=== PATIENT | female | born 1965 | race Caucasian/White ===

== ENCOUNTER → 2019-08-10 11:12 | Outpatient (CLI) | payer OTHER, SELFPAY ==
--- NOTE | ~2019-08-10 | MM_ITS ---
EXAMINATION: MM screening [facility] BI w kasia HISTORY: Screening mammogram TECHNIQUE: Craniocaudal and mediolateral oblique 3-D tomosynthesis images were obtained and synthetic 2-D images were generated. CAD analysis was submitted and interpreted. COMPARISON: 05/13/1918, 04/26/2017, 06/20/2015 BREAST PARENCHYMAL COMPOSITION: There are scattered areas of fibroglandular density. FINDINGS: Stable intramammary lymph nodes are noted in the upper outer quadrants of the breasts. Ther e is no evidence of suspicious mass, calcification, or architectural distortion to suggest malignancy in either breast. There has been no suspicious interval change. IMPRESSION: 1. No mammographic evidence of malignancy. 2. Recommend routine screening mammography in one year. BI-RADS Category 2: Benign finding(s). Reviewed, dictated and finalized at location A. 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
== END ==
PROVIDERS: PCP Physician Assistant; Visit Provider Physician Assistant
DX: Z12.31 Encounter for screening mammogram for malignant neoplasm of breast (principal)
CPT/HCPCS: 77063; 77067

== ENCOUNTER → 2021-01-03 15:42 | Outpatient (CLI) | payer OTHER, SELFPAY ==
--- NOTE | ~2021-01-03 | MM_ITS ---
EXAMINATION: MM screening [facility] BI w kasia HISTORY: Screening mammogram TECHNIQUE: Craniocaudal and mediolateral oblique 3-D tomosynthesis images were obtained and synthetic 2-D images were generated. CAD analysis was submitted and interpreted. COMPARISON: 08/10/2019, 05/13/1918, 04/26/2017 BREAST PARENCHYMAL COMPOSITION: There are scattered areas of fibroglandular density. FINDINGS: There is no evidence of suspicious mass, calcification, or architectural distortion to sugg est malignancy in either breast. There has been no suspicious interval change. IMPRESSION: 1. No mammographic evidence of malignancy. 2. Recommend routine screening mammography in one year. BI-RADS Category 1: Negative Reviewed, dictated and finalized at location A.
== END ==
PROVIDERS: PCP Physician Assistant; Visit Provider Obstetrics & Gynecology
DX: Z12.31 Encounter for screening mammogram for malignant neoplasm of breast (principal)
CPT/HCPCS: 77063; 77067

== ENCOUNTER → 2021-03-10 14:46 | Outpatient (CLI) | payer OTHER, SELFPAY ==
--- NOTE | ~2021-03-10 | XR_ITS ---
XR lumbar spine 2-3V DATE: 03/10/2021 15:05 INDICATION: Low back pain. No known trauma. TECHNIQUE: AP, lateral, coned lateral lumbosacral views COMPARISON: None FINDINGS: Diffuse osteopenia. There is degenerative spurring in the lower thoracic spine. There is moderate degenerative disc disea se at L1-2 and L2-3 and mild degenerative disc disease at the remaining lumbar and spine. No fracture or bone destruction or spondylolisthesis. The lumbar pedicles are intact. The sacroiliac joints appear normal. Right-sided surgical clips, consistent with cholecystectomy IMPRESSION: Mild to moderate degenerative disc disease Reviewed, dictated and finalized at location A.
== END ==
PROVIDERS: PCP Physician Assistant; Visit Provider Physician Assistant
DX: M51.36 Other intervertebral disc degeneration, lumbar region (principal)
CPT/HCPCS: 72100

== ENCOUNTER 2021-06-14 10:43 | Emergency (ER) | payer OTHER, SELFPAY ==
--- NOTE | ~2021-06-14 | CT_ITS ---
EXAMINATION: CT abdomen pelvis wo con DATE: 06/14/2021 13:45 INDICATION: Left flank pain and vomiting TECHNIQUE: Computed tomography (CT) of the abdomen and pelvis was performed without intravenous contr ast. The dose-length product was 1276.22 mGy-cm. . Automated exposure control and iterative reconstru ction technique were employed. COMPARISON: None. FINDINGS: Lung bases are unremarkable. Heart size normal. No significant vascular abnormality. No lym phadenopathy. There is a punctate 1 mm nonobstructing stone in the upper pole of the left kidney. There is a 3 mm l eft mid ureteral stone at the L4 level. No significant hydronephrosis. Status post cholecystectomy. The liver, spleen, pancreas, adrenal glands and right kidney are unremar kable. Nonobstructive bowel gas pattern. IMPRESSION: 1. Left mid ureteral stone measuring 3 mm at the L4 level. 2: Nonobstructing left nephrolithiasis. Reviewed, dictated and finalized at location A. 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
[2021-06-14 10:52] VITALS: BP 142/72; PULSE 84; RESP 18; TEMP 36.6; O2SAT 99
--- NOTE | 2021-06-14 11:57 | ED.GENADULT ---
HPI - General Adult General Chief complaint: Urogenital-Female <Angelique Oshea PA-C - Last Filed: 06/14/21 20:00> Stated complaint: pain , back left side <Angelique Oshea PA-C - Last Filed: 06/14/21 20:00> Time Seen by Provider: 06/14/21 11:56 <MARCUS Harry Last Filed: 06/14/21 20:00> Source: patient <Angelique Oshea PA-C - Last Filed: 06/14/21 20:00> Mode of arrival: ambulatory <MARCUS Harry Last Filed: 06/14/21 20:00> Limitations: no limitations <MARCUS Harry Last Filed: 06/14/21 20:00> History of Present Illness HPI narrative: Patient states that she has sudden onset of left lower back pain that came on suddenly this morning at about 10 AM. She has vomited twice due to pain. She states that she has had some soft stool, she is able to urinate. She denies any history of kidney stone in herself or anyone in her family, no history of bowel disease in herself or anyone in her family. She also states that she has not taken any of her routine meds because she is really bad at remembering . <Angelique Oshea PA-C - Last Filed: 06/14/21 20:00> Related Data Allergies/adverse reactions: Allergies Allergy/AdvReac Type Severity Reaction Status Date / Time Penicillins Allergy Unknown Verified 10/14/11 23:06 <Angelique Oshea PA-C - Last Filed: 06/14/21 20:00> Course Course Emergency Course: spoke with Urology on-call, will follow up in office. Continue to take Ibuprofen or Ketorolac for pain. <MARCUS Harry Last Filed: 06/14/21 20:00> Vital Signs Vital signs: Vital Signs Temperature 97.8 F 06/14/21 10:52 Pulse Rate 84 06/14/21 10:52 Respiratory Rate 18 06/14/21 10:52 Blood Pressure 142/72 H 06/14/21 10:52 Pulse Oximetry 99 06/14/21 10:52 Temperature 97.8 F 06/14/21 10:52 Pulse Rate 84 06/14/21 10:52 Respiratory Rate 18 06/14/21 10:52 Blood Pressure 142/72 H 06/14/21 10:52 Pulse Oximetry 99 06/14/21 10:52 <Angelique Oshea PA-C - Last Filed: 06/14/21 20:00> Medical Decision Making Vital Signs Vital Signs: Vital Signs Temperature 97.8 F 06/14/21 10:52 Pulse Rate 84 06/14/21 10:52 Respiratory Rate 18 06/14/21 10:52 Blood Pressure 142/72 H 06/14/21 10:52 Pulse Oximetry 99 06/14/21 10:52 Temperature 97.8 F 06/14/21 10:52 Pulse Rate 84 06/14/21 10:52 Respiratory Rate 18 06/14/21 10:52 Blood Pressure 142/72 H 06/14/21 10:52 Pulse Oximetry 99 06/14/21 10:52 <MARCUS Harry Last Filed: 06/14/21 20:00> Lab Data Result diagrams: : 06/14/21 13:07 06/14/21 13:07 <Angelique Oshea PA-C - Last Filed: 06/14/21 20:00> Labs: Lab Results 06/14/21 06/14/21 06/14/21 Range/Units 11:46 13:07 13:07 WBC 8.1 (4.5-10.0) K/mm3 RBC 4.17 L (4.2-5.4) M/mm3 Hgb 12.6 (12.0-15.0) g/dL Hct 38.9 (37.0-47.0) % MCV 93.3 (80-100) fl MCH 30.2 (26-34) pg MCHC 32.4 (32-36) g/dl RDW 13.4 (11.5-14.5) % Plt Count 292 (150-375) k/mm3 MPV 9.7 (7.4-10.4) fl Immature Gran % (Auto) 0.5 (0-0.5) % Neut % (Auto) 79.4 H (45.5-73.1) % Lymph % (Auto) 13.6 L (18.3-44.2) % [place] % (Auto) 5.2 (2.6-8.5) % Eos % (Auto) 0.9 (0-4.4) % Baso % (Auto) 0.4 (0.2-1.2) % Lymph # (Auto) 1.11 (0.9-3.2) K/mm3 [place] # (Auto) 0.4 (0.1-0.6) K/mm3 Eos # (Auto) 0.1 (0-0.3) K/mm3 Baso # (Auto) 0.0 (0.0-0.1) K/mm3 Abs Immat Gran (auto) 0.04 H (0.00-0.031) K/mm3 Absolute Neuts (auto) 6.5 (1.3-6.7) K/mm3 Absolute Nucleated RBC 0.0 (0.0-0.012) K/mm3 Nucleated RBC % 0.0 (0.0-0.2) % Sodium 135 L (137-145) mmol/L Potassium 4.7 (3.4-5.0) mmol/L Chloride 102 (98-107) mmol/L Carbon Dioxide 26 (22-30) mmol/L Anion Gap 7 L (8-16) mmol/L BUN 20 H (7-17) mg/dL Creatinine 0.70 (0.7-1.0) mg/dL Estim Creat Cl
[2021-06-14] MEDS: KETOROLAC (*BKC) 60 MG/2 ML VIAL IM (12:14)
[2021-06-14 12:38] LABS: Add Urine Microscopic? YES; Appearance Urine Cloudy (Clear); Bilirubin Urine Negative (Negative); Blood Urine 3+ (Negative); Budding Yeast Urine Present /hpf; Color Urine Yellow (Yellow); Glucose Urine UA Negative (Negative); Ketones Urine Negative (Negative); Leukocyte Esterase Ur Negative LEU/UL (Negative); Mucus Urine Heavy /lpf; Nitrate Urine Negative (Negative); Protein Urine 2+ mg/dL (Negative); RBC Urine >75 /hpf (0-2); Specific Grav Ur 1.029 (1.001-1.035); Squamous Epithelial Cell Urine Moderate /hpf (Few); WBC Urine 0-3 /hpf
[2021-06-14 13:19] LABS: Basophils Percent Auto 0.4 % (0.2-1.2); Eosinophils Absolute Auto 0.1 K/mm3 (0-0.3); Eosinophils Percent Auto 0.9 % (0-4.4); Hematocrit 38.9 % (37.0-47.0); Hemoglobin 12.6 g/dL (12.0-15.0); Immature Granulocyte Absolute 0.04 K/mm3 (0.00-0.031); Immature Granulocyte Percent A 0.5 % (0-0.5); Lymphocytes Absolute Auto 1.11 K/mm3 (0.9-3.2); Lymphocytes Percent Auto 13.6 % (18.3-44.2); Mean Corpuscular HGB Conc 32.4 g/dl (32-36); Mean Corpuscular Hemoglobin 30.2 pg (26-34); Mean Corpuscular Volume 93.3 fl (80-100); Mean Platelet Volume 9.7 fl (7.4-10.4); Monocytes Absolute Auto 0.4 K/mm3 (0.1-0.6); Monocytes Percent Auto 5.2 % (2.6-8.5); Neutrophils Absolute Auto 6.5 K/mm3 (1.3-6.7); Neutrophils Percent Auto 79.4 % (45.5-73.1); Platelet Count Result 292 k/mm3 (150-375); Red Blood Count 4.17 M/mm3 (4.2-5.4); Red Cell Distribution Width 13.4 % (11.5-14.5); White Blood Count 8.1 K/mm3 (4.5-10.0)
[2021-06-14 13:31] LABS: Anion Gap 7 mmol/L (8-16); Blood Urea Nitrogen 20 mg/dL (7-17); Calcium 9.2 mg/dL (8.4-10.2); Carbon Dioxide 26 mmol/L (22-30); Chloride 102 mmol/L (98-107); Estimated CRCL calculation 93 ml/min; Estimated Glomerular Filt Rate > 60; Glucose 136 mg/dL (65-110); Potassium 4.7 mmol/L (3.4-5.0); Sodium 135 mmol/L (137-145)
--- NOTE | 2021-06-14 14:40 | PC.NURSE ---
Pt called out for more pain medication. Provider made aware.
[2021-06-14] MEDS: ACETAMINOPHEN 500 MG TABLET 1000 MG PO (15:02)
== END 2021-06-14 15:11 | disposition home or self-care (01) ==
PROVIDERS: Physician Assistant; Emergency Provider General Practice; PCP Physician Assistant
DX: N20.2 Calculus of kidney with calculus of ureter (principal)
CPT/HCPCS: 36415; 74176; 80048; 81001; 85025; 96372; 99284; A9270; J1885

== ENCOUNTER → 2021-07-06 14:46 | Outpatient (CLI) | payer OTHER, SELFPAY ==
--- NOTE | ~2021-07-06 | XR_ITS ---
EXAMINATION: XR abdomen/kub 1V EXAM DATE: 07/06/2021 15:09 INDICATION: History of kidney stones . TECHNIQUE: Frontal projection of the upper abdomen, frontal projection lower abdomen/pelvis for inter pretation. Correlation is made to CT abdomen pelvis 06/14/2021 FINDINGS: Left mid ureteral 3 mm stone seen on CT last month is not definitely identified. There are cholecystectomy clips. Nonobstructive bowel gas pattern. Mild bony degenerative changes. There is no organomegaly. IMPRESSION: No suspicious calcifications identified. Reviewed, dictated and finalized at location A. 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
== END ==
PROVIDERS: Visit Provider Urology
DX: Z87.442 Personal history of urinary calculi (principal)
CPT/HCPCS: 74018

== ENCOUNTER → 2021-10-20 09:09 | Outpatient (CLI) | payer OTHER, SELFPAY ==
--- NOTE | ~2021-10-20 | XR_ITS ---
EXAMINATION: XR chest 2V DATE: 10/20/2021 10:27 INDICATION: Cough TECHNIQUE: PA and lateral views of the chest are obtained. COMPARISON: None available FINDINGS: There are minimal airspace opacities of the left lower lobe. There is no pleural effusion o r pneumothorax. The cardiomediastinal silhouette is normal. There is mild thoracic spondylosis. Surgi leeroy clips in the right upper quadrant are likely from prior cholecystectomy. IMPRESSION: 1. Left lower lobe airspace opacities, likely pneumonia. Recommend followup radiographs in 10-14 days after appropriate therapy to evaluate for improvement/resolution. Reviewed, dictated and finalized at location B. IMPRESSION: 1. Left lower lobe airspace opacities, likely pneumonia. Recommend followup rad iographs in 10-14 days after appropriate therapy to evaluate for improvement/re solution.
== END ==
PROVIDERS: PCP Physician Assistant; Visit Provider Physician Assistant
DX: R05.1 Acute cough (principal); R91.8 Other nonspecific abnormal finding of lung field
CPT/HCPCS: 71046

== ENCOUNTER → 2021-10-31 16:17 | Outpatient (CLI) | payer OTHER, SELFPAY ==
--- NOTE | ~2021-10-31 | XR_ITS ---
EXAMINATION: XR chest 2V Exam Date/Time: 10/31/2021 16:41 CDT CLINICAL HISTORY: Pneumonia Comparison: None available. RESULT: Lines, tubes, and devices: None. Lungs and pleura: Clear. Near complete resolution of the previously described left pulmonary opacities. Cardiomediastinal silhouette: Stable cardiomediastinal silhouette. Other: No acute osseous or upper abdominal finding. IMPRESSION: No acute cardiopulmonary process Reviewed, dictated and finalized at location K.
== END ==
PROVIDERS: PCP Physician Assistant; Visit Provider Physician Assistant
DX: J18.9 Pneumonia, unspecified organism (principal)
CPT/HCPCS: 71046

== ENCOUNTER 2022-04-20 12:51 | Emergency (ER) | payer OTHER, SELFPAY ==
[2022-04-20 13:02] VITALS: BP 120/61; PULSE 102; RESP 18; TEMP 36.8; O2SAT 100
--- NOTE | 2022-04-20 14:01 | ED.URI ---
HPI - URI/Sore Throat General Chief Complaint: Upper Respiratory Infection Stated Complaint: cough Time Seen by Provider: 04/20/22 14:00 Source: patient, RN notes reviewed and old records reviewed Mode of arrival: ambulatory Limitations: no limitations History of Present Illness HPI Narrative: 56-year-old female presents to the [facility] with complaints of cough, feeling feverish since Saturday. He reports cough and generalized not feeling well. Related Data Home Medications Medication Instructions Recorded Confirmed levothyroxine 75 mcg tablet 75 mcg PO DAILY 02/20/22 04/20/22 rosuvastatin 10 mg tablet 10 mg PO DAILY 02/20/22 04/20/22 sertraline 50 mg tablet 50 mg PO DAILY 02/20/22 04/20/22 Allergies Allergy/AdvReac Type Severity Reaction Status Date / Time Penicillins Allergy Unknown Unknown Verified 04/20/22 13:42 Review of Systems Review of Systems: All systems reviewed & are unremarkable except as noted in HPI and below Constitutional: Constitutional: Reports as per HPI, Denies chills, Reports fatigue and Reports fever(s) Eyes: Eyes: Reports no additional eye complaints ENT: Reports system reviewed and no additional complaints, except as documented Cardiovascular: Cardiovascular: Reports no additional cardiovascular complaints Respiratory: Respiratory: Reports as per HPI and Reports cough Gastrointestinal: Gastrointestinal: Reports no additional gastrointestinal complaints Musculoskeletal: Musculoskeletal: Reports no additional musculoskeletal complaints Integumentary/Breasts: Skin/Breast: Reports system reviewed and no additional complaints, except as docu Neurologic: Reports system reviewed and no additional complaints, except as documented Psychiatric: Psychiatric: Reports no additional psychiatric complaints Allergic/Immunologic: Allergic/Immunologic: Reports no additional allergic/immunologic complaints ON LICENSE OF [facility] Past Medical History Medical History Anxiety Depression Dizziness High cholesterol Hypothyroidism Screening mammogram, encounter for Surgical History Surgical History History of (09/19/85) History of cholecystectomy (~1993) History of total abdominal hysterectomy and bilateral salpingo-oophorectomy (~1994) endometriosis History of tubal ligation (~07/25/92) Family History Family History Mother Diabetes mellitus Breast cancer Sibling Diabetes mellitus brother Other Breast cancer maternal aunt Father Malignant tumor of stomach Social History Social History Smoking status: Former smoker Tobacco type: e-cigarettes/vaping Alcohol intake: never Substance use: never Substance use type: does not use Additional living arrangements comments: single 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 There is no relevant family history pertinent to the patient complaint. Exam Const: General: healthy appearing, no acute distress, alert and well nourished Nutritional Appearance: well nourished Orientation/consciousness: patient oriented x3 Limitations: no limitations HENMT: Head: normal to inspection Ears: external ears normal, TM's normal bilaterally and EAC's normal Face/Nose/Sinus: Normal external nose present Mouth: Yes Normal oral and palatal mucosa present, Yes lip normal and Yes moist mucous membranes Throat: posterior oropharynx normal and uvula midline Eyes: General: appearance normal, both eyes and all related structures Conjunctivae: conjunct
== END 2022-04-20 14:31 | disposition home or self-care (01) ==
PROVIDERS: Emergency Provider Nurse Practitioner
DX: J20.9 Acute bronchitis, unspecified (principal); E03.9 Hypothyroidism, unspecified; F41.9 Anxiety disorder, unspecified; F32.9 Major depressive disorder, single episode, unspecified; Z87.891 Personal history of nicotine dependence
CPT/HCPCS: 87804; 99213; G0463

== ENCOUNTER → 2022-05-03 13:03 | Outpatient (CLI) | payer OTHER, SELFPAY ==
--- NOTE | ~2022-05-03 | MM_ITS ---
EXAMINATION: MM screening [facility] BI w kasia HISTORY: Screening mammogram TECHNIQUE: Craniocaudal and mediolateral oblique 3-D tomosynthesis images were obtained and synthetic 2-D images were generated. CAD analysis was submitted and interpreted. COMPARISON: 01/03/2021, 08/10/2019, 05/22/2018 bilateral screening mammogram examinations BREAST PARENCHYMAL COMPOSITION: There are scattered areas of fibroglandular density. FINDINGS: Bilateral posterior upper outer quadrant intramammary lymph nodes. There is no evidence of suspicious mass, calcification, or architectural distortion to suggest malignancy in either breast. T here has been no suspicious interval change. IMPRESSION: 1. No mammographic evidence of malignancy. 2. Recommend routine screening mammography in one year. BI-RADS Category 2: Benign finding(s). Reviewed, dictated and finalized at location A. CONSULTANT
== END ==
PROVIDERS: PCP Physician Assistant; Visit Provider Obstetrics & Gynecology
DX: Z12.31 Encounter for screening mammogram for malignant neoplasm of breast (principal)
CPT/HCPCS: 77063; 77067

== ENCOUNTER 2022-08-10 00:30 | Day surgery (SDC) | payer OTHER, SELFPAY ==
[2022-07-26 12:28] VITALS: BMI 40.4
[2022-08-10 08:12] VITALS: BP 119/58; PULSE 65; RESP 20; TEMP 36.2; O2SAT 98; BMI 40.8
[2022-08-10] MEDS: LACTATED RINGERS 1,000 ML 150 ML IV CONT (08:22)
--- NOTE | 2022-08-10 08:40 | WPDANESEPPF ---
Anes - Initial Pre Proc Eval Procedure: Operation Date: 08/10/22 09:00 Proposed Procedures p Screening Colonoscopy - Eddi Moreno MD Date/Time: 08/10/22 08:40 Surgeon: Eddi Moreno MD Pre Op Diagnosis: neoplasm screening Patient Data Age: 57 Gender: F Height: 1.63 m Weight: 108 kg Last Vital Signs Temp 36.2 C L 08/10/22 08:12 Pulse 65 08/10/22 08:12 Resp 20 08/10/22 08:12 BP 119/58 L 08/10/22 08:12 Pulse Ox 98 08/10/22 08:12 O2 Del Method Room Air 08/10/22 08:12 Allergies Allergy/AdvReac Type Severity Reaction Status Date / Time Penicillins Allergy Unknown Unknown Verified 04/20/22 13:42 Home Medications Medication Instructions Recorded Confirmed Type levothyroxine 75 mcg tablet 75 mcg PO DAILY 02/20/22 07/26/22 History rosuvastatin 10 mg tablet 10 mg PO DAILY 02/20/22 07/26/22 History sertraline 50 mg tablet 50 mg PO DAILY 02/20/22 07/26/22 History Patient hx anesthesia problems: none Family hx anesthesia problems: none Results Review: All pre-operative results and documents have been reviewed as part of the pre-operative evaluation. [facility] Past Medical History Medical History Anxiety Depression Dizziness High cholesterol Hypothyroidism Screening mammogram, encounter for Surgical History Surgical History History of (09/19/85) History of cholecystectomy (~1993) History of total abdominal hysterectomy and bilateral salpingo-oophorectomy (~1994) endometriosis History of tubal ligation (~07/25/92) Family History Family History Mother Diabetes mellitus Breast cancer Sibling Diabetes mellitus brother Other Breast cancer maternal aunt Father Malignant tumor of stomach Social History Social History Smoking packs per day: 0.5 Smoking cigarettes per day: 10.0 Years smoked: 30 Smoking pack-years: 15.00 Smoking status: Former smoker Tobacco type: cigarettes and e-cigarettes/vaping Additional smoking assessment comments: QUIT SMOKING 2018 AND STARTED VAPING Alcohol intake: never Substance use: never Substance use type: does not use Living arrangements: with family Additional living arrangements comments: single 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 Gender identity (if verbalized by the patient): Female Sexual Orientation (if Verbalized by the Patient): Straight or Heterosexual Spiritual care concerns: No Anes - Eval Final PreProcedure Day of Procedure 08/10/22 08:40 Patient weight: morbidly obese Heart: regular rate and rhythm Lungs: clear to auscultation Airway: Mallampati scale class II Neurological: alert and oriented Last oral intake: >/= 8 hours ASA classification: III Emergent: no Anesthetic plan: proceed Anesthesia type and monitoring: general GIVS and standard monitoring Results Review: All pre-operative results and documents have been reviewed as part of the pre-operative evaluation. Informed Consent: The patient's anesthetic plan and its attendant risks and benefits were discussed with the patient/family/POA. Questions were solicited and answers provided to the satisfaction of the patient/family/POA.
--- NOTE | 2022-08-10 08:57 | PM.HPGS ---
History of Present Illness History of Present Illness Consent: Risks, benefits, and alternatives have been discussed and questions answered. Patient agrees to proceed with procedure. Chief complaint: neoplasm screening Narrative: Samina Nicolas is a 57 year old female Presents for screening colonoscopy. Patient's current weight appetite and bowel movements are normal. Patient denies abdominal pain. Patient has had no bleeding. Family history noncontributory. Previous colonoscopy 10 years ago was unremarkable. Review of Systems Review of Systems: Review of systems noncontributory. [facility] Past Medical History Medical History Anxiety Depression Dizziness High cholesterol Hypothyroidism Screening mammogram, encounter for Surgical History Surgical History History of (09/19/85) History of cholecystectomy (~1993) History of total abdominal hysterectomy and bilateral salpingo-oophorectomy (~1994) endometriosis History of tubal ligation (~07/25/92) Family History Family History Mother Diabetes mellitus Breast cancer Sibling Diabetes mellitus brother Other Breast cancer maternal aunt Father Malignant tumor of stomach Social History Social History Smoking packs per day: 0.5 Smoking cigarettes per day: 10.0 Years smoked: 30 Smoking pack-years: 15.00 Smoking status: Former smoker Tobacco type: cigarettes and e-cigarettes/vaping Additional smoking assessment comments: QUIT SMOKING 2018 AND STARTED VAPING Alcohol intake: never Substance use: never Substance use type: does not use Living arrangements: with family Additional living arrangements comments: single 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 Gender identity (if verbalized by the patient): Female Sexual Orientation (if Verbalized by the Patient): Straight or Heterosexual Spiritual care concerns: No Meds Home Medications and Allergies Home Medications Medication Instructions Recorded Confirmed Type levothyroxine 75 mcg tablet 75 mcg PO DAILY 02/20/22 07/26/22 History rosuvastatin 10 mg tablet 10 mg PO DAILY 02/20/22 07/26/22 History sertraline 50 mg tablet 50 mg PO DAILY 02/20/22 07/26/22 History Allergies Allergy/AdvReac Type Severity Reaction Status Date / Time Penicillins Allergy Unknown Unknown Verified 04/20/22 13:42 Vital Signs Vital Signs - 24 hr 08/10/22 08:12 Temperature 97.2 F L Pulse Rate 65 Respiratory Rate 20 Blood Pressure 119/58 L Pulse Oximetry 98 Oxygen Delivery Room Air Exam Narrative: Physical exam reveals patient to be alert. Vital signs stable. HEENT exam is unremarkable. Patient is anicteric. Lungs are clear to auscultation and percussion. Heart is without murmur or extra sounds. Abdomen bowel sounds are present soft nontender with no organomegaly. Digital external rectal exam is normal. Assessment and Plan Assessment and plan (1) Encounter for screening colonoscopy: Code(s): Z12.11 - Encounter for screening for malignant neoplasm of colon Status: Acute Assessment and Plan: Patient presents today for screening colonoscopy. She appears to be at average risk for colon polyps.
[2022-08-10 09:35] VITALS: BP 108/69; PULSE 66; RESP 16; O2SAT 98
[2022-08-10 09:45] VITALS: BP 106/64; PULSE 64; RESP 18; O2SAT 98
[2022-08-10 09:55] VITALS: BP 117/72; PULSE 62; RESP 18; O2SAT 99
== END 2022-08-10 09:59 | disposition home or self-care (01) ==
PROVIDERS: PCP Physician Assistant; Visit Provider Internal Medicine Gastroenterology
PROC: 0DJD8ZZ Inspection of Lower Intestinal Tract, Via Natural or Artificial Opening Endoscopic (ICD-10-PCS; CPT 45378; principal; 2022-08-10 09:00)
DX: Z12.11 Encounter for screening for malignant neoplasm of colon (principal); K63.5 Polyp of colon; K62.1 Rectal polyp; E03.9 Hypothyroidism, unspecified; E78.00 Pure hypercholesterolemia, unspecified; F41.9 Anxiety disorder, unspecified; F32.A Depression, unspecified; F17.290 Nicotine dependence, other tobacco product, uncomplicated; E66.01 Morbid (severe) obesity due to excess calories; Z68.41 Body mass index [BMI] 40.0-44.9, adult
CPT/HCPCS: 45385; 88305; J2704; J7120

== ENCOUNTER → 2023-03-21 08:32 | Outpatient (CLI) | payer OTHER, SELFPAY ==
--- NOTE | ~2023-03-21 | XR_ITS ---
XR abdomen/kub 1V 03/21/2023 09:11 INDICATION: Low back pain TECHNIQUE: KUB COMPARISON: None FINDINGS: Bowel gas pattern is normal. There is no evidence of free air, mass, organomegaly, ascites or obstruction. No abnormal calculi are seen. The bones appear intact. There is a right pelvic phl ebolith. Moderate colonic fecal loading. There are cholecystectomy clips. Mild lumbar spondylosis. IMPRESSION: 1: No acute abdominal abnormality identified. Reviewed, dictated and finalized at location L.
== END ==
PROVIDERS: PCP Physician Assistant; Visit Provider Physician Assistant
DX: M54.50 Low back pain, unspecified (principal)
CPT/HCPCS: 74018

== ENCOUNTER 2023-06-25 08:07 | Emergency (ER) | payer OTHER, SELFPAY ==
--- NOTE | 2023-06-25 08:10 | ED.URI ---
HPI - URI/Sore Throat General Chief Complaint: Upper Respiratory Infection Stated Complaint: COVID+ Time Seen by Provider: 06/25/23 08:09 Source: patient Mode of arrival: ambulatory Limitations: no limitations History of Present Illness HPI Narrative: Patient is a 57-year-old female that presents with cough, congestion and intermittent fevers since the . Patient tested positive for COVID on the and still tested positive yesterday. Patient states her cough is only thing that seems to linger. Denies any ear pain, sore throat, nausea, vomiting, diarrhea. Related Data Home Medications Medication Instructions Recorded Confirmed levothyroxine 75 mcg tablet 75 mcg PO DAILY 02/20/22 07/26/22 rosuvastatin 10 mg tablet 10 mg PO DAILY 02/20/22 07/26/22 sertraline 50 mg tablet 50 mg PO DAILY 02/20/22 07/26/22 Allergies Allergy/AdvReac Type Severity Reaction Status Date / Time Penicillins Allergy Unknown Unknown Verified 04/20/22 13:42 Review of Systems Review of Systems: All systems reviewed & are unremarkable except as noted in HPI and below Constitutional: Constitutional: Denies body ache(s), Denies chills, Denies fatigue, Denies fever(s), Denies headache(s), Denies malaise and Denies weakness Eyes: Eyes: Denies blurry vision, Denies itchy eyes and Denies loss of vision ENT: Denies otalgia, Denies headache(s), Reports nasal congestion, Denies sinus pain and Denies sore throat Cardiovascular: Cardiovascular: Denies chest pain, Denies irregular heart rhythm and Denies dyspnea Respiratory: Respiratory: Reports cough and Denies dyspnea Gastrointestinal: Gastrointestinal: Denies abdominal pain, Denies diarrhea, Denies nausea and Denies vomiting Musculoskeletal: Musculoskeletal: Denies back pain, Denies myalgias and Denies arthralgias Integumentary/Breasts: Skin/Breast: Denies pruritus and Denies rash Neurologic: Denies headache(s), Denies loss of vision and Denies weakness Psychiatric: Psychiatric: Reports no additional psychiatric complaints Endocrine: Endocrine: Denies fatigue Allergic/Immunologic: Allergic/Immunologic: Denies itchy eyes PMFSH Past Medical History Medical History Anxiety Depression Dizziness High cholesterol Hypothyroidism Screening mammogram, encounter for Surgical History Surgical History History of (09/19/85) History of cholecystectomy (~1993) History of total abdominal hysterectomy and bilateral salpingo-oophorectomy (~1994) endometriosis History of tubal ligation (~07/25/92) Family History Family History Mother Diabetes mellitus Breast cancer Sibling Diabetes mellitus brother Other Breast cancer maternal aunt Father Malignant tumor of stomach Social History Social History Smoking packs per day: 0.5 Smoking cigarettes per day: 10.0 Years smoked: 30 Smoking pack-years: 15.00 Smoking status: Former smoker Tobacco type: cigarettes and e-cigarettes/vaping Additional smoking assessment comments: QUIT SMOKING 2018 AND STARTED VAPING Alcohol intake: never Substance use: never Substance use type: does not use Living arrangements: with family Additional living arrangements comments: single 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 There is no relevant family history pertinent to the presenting complaint. Exam Const: General: cooperative, healthy appearing, comfortable, no acute distress
[2023-06-25 08:17] VITALS: BP 116/61; PULSE 97; RESP 16; TEMP 37.2; O2SAT 99
== END 2023-06-25 08:32 | disposition home or self-care (01) ==
PROVIDERS: Emergency Provider Nurse Practitioner Family; PCP Physician Assistant
DX: J06.9 Acute upper respiratory infection, unspecified (principal); E03.9 Hypothyroidism, unspecified; Z87.891 Personal history of nicotine dependence
CPT/HCPCS: 99213; G0463

== ENCOUNTER → 2023-08-02 15:50 | Outpatient (CLI) | payer OTHER, SELFPAY ==
--- NOTE | ~2023-08-02 | MM_ITS ---
EXAMINATION: MM screening nayeli BI w kasia HISTORY: Screening mammogram TECHNIQUE: Craniocaudal and mediolateral oblique 3-D tomosynthesis images were obtained and synthetic 2-D images were generated. CAD analysis was submitted and interpreted. COMPARISON: 05/03/2022, 01/03/2021, 08/10/2019 bilateral screening mammogram examinations BREAST PARENCHYMAL COMPOSITION: There are scattered areas of fibroglandular density. FINDINGS: Stable posterior upper outer quadrant benign appearing right lymph nodes. There is no evide nce of suspicious mass, calcification, or architectural distortion to suggest malignancy in either br east. There has been no suspicious interval change. IMPRESSION: 1. No mammographic evidence of malignancy. 2. Recommend routine screening mammography in one year. BI-RADS Category 2: Benign finding(s). Reviewed, dictated and finalized at location A. [facility]
== END ==
PROVIDERS: PCP Physician Assistant; Visit Provider Obstetrics & Gynecology
DX: Z12.31 Encounter for screening mammogram for malignant neoplasm of breast (principal)
CPT/HCPCS: 77063; 77067

== ENCOUNTER 2024-11-24 12:31 | Outpatient (CLI) | payer OTHER, SELFPAY ==
--- OUTSIDE RECORDS SUMMARY | 2024-11-24 12:40 | XMS_ITS | Clinical Summary ---
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 Gender Identity Not on file Sexual Orientation Not on file Plan of Treatment Health Maintenance Due Date Last Done Comments Hepatitis C Virus (HCV) Screening 1966 TdaP Immunization 1966 Hepatitis B Immunization (1 of 3 - 19+ 3-dose series) 1985 Colonoscopy 2011 Colorectal Cancer Screening 2011 Cologuard 2016 Immunochemical Fecal Occult Blood 2016 Pneumococcal Immunization (5 0+ years) (1 of 1 - PCV) 2016 Zoster Immunization (1 of 2) 2016 Influenza Immunization (#1) 2024 04/10/2017 SARS-COV-2 Immunization ( season) 2024 07/03/2021, 09/03/2020, 2020 Respiratory Syncytial Virus (RSV) Immunization (Adult) (1 - 1-dose 75+ series) 2041 Meningococcal Immunization (ACWY) Aged Out No longer eligible b ased on patient's age to complete this topic Rotavirus Immunization Aged Out No lo nger eligible based on patient's age to complete this topic
--- OUTSIDE RECORDS SUMMARY | 2024-11-24 12:40 | XMS_ITS | Data Portability ---
[facility] Address [address] [place] [address] Care Team Providers Care Asbestos Remover Name Role Phone ELVIE JOYCE Primary Care Provider Unavailab le Assessment Encounter Date Assessment Date Assessment LastModified by Organization Details LastModified Time 10/14/2023 10/14/2023 mammogram UTD this year. pap smear due, last was a few years ago with dr. rolon. colonoscopy 2022, UTD, she thinks a few polyps. will get records. Not available 10/14/2023 17:33:53 07/07/2024 07/07/2024 mammogram UTD but due jul 2024 pap smear due, last was a few years ago with dr. rolon. colonoscopy 2022, UTD, she thinks a few polyps. will get records. LDL cholesterol is elevated at 146. Thyroid levels are in range fasting glucose is elevated at 138. A1c is now 6.7% which is positive for type 2 diabetes. Previously patient was prediabetic. CBC blood counts are normal Not available 07/07/2024 15:01:53 Plan of Treatment Reminders Order Date Submit Date Provider Last Modified By Organization Details Last Modified Time Details Appointments ANY 15 2024 02:00P M RIAN Olson Not available Not available Not available Lab CBC w/ auto diff 2024 025 [facility], [address], [place], [address], 10/05/2024 03:08:14 CMP, serum or plasma 2024 025 [facility], [address], [place], [address], 10/05/2024 03:08:15 lipid panel, serum 2024 025 [facility], [address], [place], [address], 10/05/2024 03:08:14 HbA1c (hemoglob in A1c), blood 2024 025 [facility], [address], [place], [address], 10/05/2024 03:08:15 microalbu min, urine 2024 025 [facility], [address], [place], [address], 10/05/2024 03:08:16 TSH + free T4, serum 2024 025 [facility], [address], [place], [address], 10/05/2024 03:08:13 HbA1c (hemoglob in A1c), blood 2023 024 [facility], [address], [place], [address], 06/14/2024 09:06:26 CBC w/ auto diff 2023 024 [facility], [address], [place], [address], 06/14/2024 09:06:27 CMP, serum or plasma 2023 024 [facility], [address], [place], [address], 06/14/2024 09:06:26 lipid panel, serum 2023 024 [facility], [address], [place], [address], 06/14/2024 09:06:24 TSH + free T4, serum 2023 024 [place] [facility], [address], [place], [address], 06/14/2024 09:06:25 Referral None recorded. Procedures nerve conductio n study/EMG , upper extremity (PROC) [address] (Cardiology [facility]), [address], [place], [address], 11/02/2024 11:35:27 Surgeries None recorded. Imaging None recorded. Medication Orders benzonata te 200 mg capsule 2024 025 [facility], [address] , [place], [address], 08/19/2024 13:54:53 prednison e 20 mg tablet 2024 025 [facility] [address], [address], [place], [address], 08/19/2024 13:54:52 azithromy uzma 250 mg tablet 2024 025 [facility] [address], [address] , [place], [address], 08/19/2024 14:25:10 sertralin e 50 mg tablet 2024 025 [facility] [address], [address], [place], [address], 07/07/2024 15:15:35 atorvasta tin 20 mg tablet 2024 025 [facility] [address], [address] , [place], [address], 07/07/2024 15:15:33 Ozempic 0.25 mg or 0.5 mg (2 mg/3 mL) subcutane ous pen injector 2024 025 [facility] [address], [address], [place], [address], 07/07/2024 15:15:37 levothyro xine 75 mcg tablet 2024 025 [facility] [address], [address], [place], [address], 07/07/2024 15:15:35 Patient TargetsNo targets recorded. Patient Instructions Encounter Date Encounter Id Patient Instructions Last Modified By Organization Details Last Modified Time 10/14/2023 [id number] A healthy lifestyle: care instructions Not available 10/23/2023 01:08:24 07/07/2024 [id number] A healthy lifestyle: care instructions Not available 07/07/2024 15:15:28 Reason for Referral None Reported. Results Created Date Observation Date Name Description Value Unit Range Abnormal Flag Note LastModifiedBy Organization Detail LastModifiedTime 06/13/2006/14/2024 LIPID PANEL W/ CHOL/ HDL RATIO cholesterol, total 211 mg/dL 100-19 9 above high normal Not Available [facility] ([facility]) [address] [place], [address], 06/14/2024 09:06:24 06/13/20 24 06/14/2024 LIPID PANEL W/ CHOL/ HDL RATIO triglyceride s 137 mg/dL 0-149 Not Available [facility] ([facility]) [address] [place], [address], 06/14/2024 09:06:24 06/13/20 24 06/14/2024 LIPID PANEL W/ CHOL/ HDL RATIO HDL cholesterol 40 mg/dL >39 Not Available [facility]) [address] [place], [address], 06/14/2024 09:06:24 06/13/20 24 06/14/2024 LIPID PANEL W/ CHOL/ HDL RATIO VLDL cholesterol leeroy 25 mg/dL 5-40 Not Available [facility] ([facility]) [address] [place], [address], 06/14/2024 09:06:24 06/13/20 24 06/14/2024 LIPID PANEL W/ CHOL/ HDL RATIO LDL chol calc ([facility]) 146 mg/dL 0-99 above high normal Not Available [facility] ([facility]) [address] [place], [address], 06/14/2024 09:06:24 06/13/20 24 06/14/2024 LIPID PANEL W/ CHOL/ HDL RATIO T. chol/HDL ratio 5.3 ratio 0.0-4. 4 above high normal T. Chol/ HDL Ratio Men Women 1/2 Avg.R isk 3.4 3.3 Avg.R isk 5.0 4.4 2X Avg.R isk 9.6 7.1 3X Avg.R isk 23.4 11.0 Not Available [facility] ([facility]) [address] [place], [address], 06/14/2024 09:06:24 06/13/20 24 06/14/2024 TSH+F REE T4 TSH 3.140 uIU/m L 0.450- 4.500 Not Available [facility] ([facility]) [address] [place], [address], 06/14/2024 09:06:25 06/13/20 24 06/14/2024 TSH+F REE T4 T4,free(dire ct) 0.89 NG/dL 0.82-1 .77 Not Available [facility] ([facility]) [address] [place], [address], 06/14/2024 09:06:25 06/13/20 24 06/14/2024 COMP. METAB OLIC PANEL (14) glucose 138 mg/dL 70-99 above high normal Not Available [facility] ([facility]) [address] [place], [address], 06/14/2024 09:06:26 06/13/20 24 06/14/2024 COMP. METAB OLIC PANEL (14) BUN 16 mg/dL 6-24 Not Available [facility] ([facility]) [address] [place], [address], 06/14/2024 09:06:26 06/13/20 24 06/14/2024 COMP. METAB OLIC PANEL (14) creatinine 0.72 mg/dL 0.57-1 .00 Not Available [facility] ([facility]) [address] [place], [address], 06/14/2024 09:06:26 06/13/20 24 06/14/2024 COMP. METAB OLIC PANEL (14) eGFR 97 mL/mi n/1.7 3 >59 Not Available [facility] ([facility]) [address] [place], [address], 06/14/2024 09:06:26 06/13/20 24 06/14/2024 COMP. METAB OLIC PANEL (14) BUN/creatini ne ratio 22 9-23 Not Available [facility] ([facility]) [address] [facility] [place], [address], 06/14/2024 09:06:26 06/13/20 24 06/14/2024 COMP. METAB OLIC PANEL (14) sodium 139 mmol/ L 134-14 4 Not Available [facility] ([facility]) [address] [facility] [place], [address], 06/14/2024 09:06:26 06/13/20 24 06/14/2024 COMP. METAB OLIC PANEL (14) potassium 4.4 mmol/ L 3.5-5. 2 Not Available [facility] ([facility]) [address] [place], [address], 06/14/2024 09:06:26 06/13/20 24 06/14/2024 COMP. METAB OLIC PANEL (14) chloride 102 mmol/ L 96-106 Not Available [facility] ([facility]) [address] [facility], [place], [address], 06/14/2024 09:06:26 06/13/20 24 06/14/2024 COMP. METAB OLIC PANEL (14) carbon dioxide, total 21 mmol/ L 20-29 Not Available [facility] ([facility]) [address] [facility], [place], [address], 06/14/2024 09:06:26 06/13/20 24 06/14/2024 COMP. METAB OLIC PANEL (14) calcium 9.0 mg/dL 8.7-10 .2 Not Available [facility] ([facility]) [address] [facility] [place], [address], 06/14/2024 09:06:26 06/13/20 24 06/14/2024 COMP. METAB OLIC PANEL (14) protein, total 6.6 g/dL 6.0-8. 5 Not Available [facility] ([facility]) [address] [facility] [place], [address], 06/14/2024 09:06:26 06/13/20 24 06/14/2024 COMP. METAB OLIC PANEL (14) albumin 4.0 g/dL 3.8-4. 9 Not Available [facility] ([facility]) [address] [facility] [place], [address], 06/14/2024 09:06:26 06/13/20 24 06/14/2024 COMP. METAB OLIC PANEL (14) globulin, total 2.6 g/dL 1.5-4. 5 Not Available [facility] ([facility]) [address] [place] [place], [address], 06/14/2024 09:06:26 06/13/20 24 06/14/2024 COMP. METAB OLIC PANEL (14) bilirubin, total 0.4 mg/dL 0.0-1. 2 Not Available [facility] ([facility]) [address] [place], [address], 06/14/2024 09:06:26 06/13/20 24 06/14/2024 COMP. METAB OLIC PANEL (14) alkaline phosphatase 104 IU/L 44-121 Not Available [facility] ([facility]) [address] [place], [address], 06/14/2024 09:06:26 06/13/20 24 06/14/2024 COMP. METAB OLIC PANEL (14) AST (SGOT) 31 IU/L 0-40 Not Available [facility] ([facility]) [address] [place], [address], 06/14/2024 09:06:26 06/13/20 24 06/14/2024 COMP. METAB OLIC PANEL (14) ALT (SGPT) 33 IU/L 0-32 above high normal Not Available [facility] ([facility]) [address] [place], [address], 06/14/2024 09:06:26 06/13/20 24 06/14/2024 HEMOG LOBIN A1C hemoglobin A1C 6.7 % 4.8-5. 6 above high normal Predi abete s: 5.7 - 6.4 Diabe ara: >6.4 Glyce mk contr ol for adult s with diabe ara: <7.0 Not Available [facility] ([facility]) [address] [place], [address], 06/14/2024 09:06:26 06/13/20 24 06/14/2024 CBC WITH DIFFE RENTI AL/PL ATELE T WBC 5.3 x10e3 /uL 3.4-10 .8 Not Available [facility] ([facility]) [address] [place], [address], 06/14/2024 09:06:27 06/13/20 24 06/14/2024 CBC WITH DIFFE RENTI AL/PL ATELE T RBC 4.15 x10e6 /uL 3.77-5 .28 Not Available [facility] ([facility]) [address] [place], [address], 06/14/2024 09:06:27 06/13/20 24 06/14/2024 CBC WITH DIFFE RENTI AL/PL ATELE T hemoglobin 12.4 g/dL 11.1-1 5.9 Not Available [facility] ([facility]) [address] [place], [address], 06/14/2024 09:06:27 06/13/20 24 06/14/2024 CBC WITH DIFFE RENTI AL/PL ATELE T hematocrit 37.9 % 34.0-4 6.6 Not Available [facility] ([facility]) [address] [place], [address], 06/14/2024 09:06:27 06/13/20 24 06/14/2024 CBC WITH DIFFE RENTI AL/PL ATELE T MCV 91 fL 79-97 Not Available [facility] ([facility]) [address] [place], [address], 06/14/2024 09:06:27 06/13/20 24 06/14/2024 CBC WITH DIFFE RENTI AL/PL ATELE T MCH 29.9 pg 26.6-3 3.0 Not Available [facility] ([facility]) [address] [place], [address], 06/14/2024 09:06:27 06/13/20 24 06/14/2024 CBC WITH DIFFE RENTI AL/PL ATELE T MCHC 32.7 g/dL 31.5-3 5.7 Not Available [facility] ([facility]) [address] [place], [address], 06/14/2024 09:06:27 06/13/20 24 06/14/2024 CBC WITH DIFFE RENTI AL/PL ATELE T RDW 12.5 % 11.7-1 5.4 Not Available [facility] ([facility]) [address] [facility], [place], [address], 06/14/2024 09:06:27 06/13/20 24 06/14/2024 CBC WITH DIFFE RENTI AL/PL ATELE T platelets 282 x10e3 /uL 150-45 0 Not Available [facility] ([facility]) [address] [facility], [place], [address], 06/14/2024 09:06:27 06/13/20 24 06/14/2024 CBC WITH DIFFE RENTI AL/PL ATELE T neutrophils 62 % notest ab. Not Available [facility] ([facility]) [address] [facility], [place], [address], 06/14/2024 09:06:27 06/13/20 24 06/14/2024 CBC WITH DIFFE RENTI AL/PL ATELE T lymphs 28 % notest ab. Not Available [facility] ([facility]) [address] [facility], [place], [address], 06/14/2024 09:06:27 06/13/20 24 06/14/2024 CBC WITH DIFFE RENTI AL/PL ATELE T monocytes 7 % notest ab. Not Available [facility] ([facility]) [address] [facility], [place], [address], 06/14/2024 09:06:27 06/13/20 24 06/14/2024 CBC WITH DIFFE RENTI AL/PL ATELE T eos 2 % notest ab. Not Available [facility] ([facility]) [address] [facility], [place], [address], 06/14/2024 09:06:27 06/13/20 24 06/14/2024 CBC WITH DIFFE RENTI AL/PL ATELE T basos 1 % notest ab. Not Available [facility] ([facility]) [address] [facility], [place], [address], 06/14/2024 09:06:27 06/13/20 24 06/14/2024 CBC WITH DIFFE RENTI AL/PL ATELE T neutrophils (absolute) 3.3 x10e3 /uL 1.4-7. 0 Not Available [facility] ([facility]) [address] [facility], [place], [address], 06/14/2024 09:06:27 06/13/20 24 06/14/2024 CBC WITH DIFFE RENTI AL/PL ATELE T lymphs (absolute) 1.5 x10e3 /uL 0.7-3. 1 Not Available [facility] ([facility]) [address] [facility], [place], [address], 06/14/2024 09:06:27 06/13/20 24 06/14/2024 CBC WITH DIFFE RENTI AL/PL ATELE T monocytes(ab solute) 0.4 x10e3 /uL 0.1-0. 9 Not Available [facility] ([facility]) [address] [place], [address], 06/14/2024 09:06:27 06/13/20 24 06/14/2024 CBC WITH DIFFE RENTI AL/PL ATELE T eos (absolute) 0.1 x10e3 /uL 0.0-0. 4 Not Available [facility] ([facility]) [address] [place], [address], 06/14/2024 09:06:27 06/13/20 24 06/14/2024 CBC WITH DIFFE RENTI AL/PL ATELE T baso (absolute) 0.0 x10e3 /uL 0.0-0. 2 Not Available [facility] ([facility]) [address] [place], [address], 06/14/2024 09:06:27 06/13/20 24 06/14/2024 CBC WITH DIFFE RENTI AL/PL ATELE T immature granulocytes 0 % notest ab. Not Available [facility] ([facility]) [address] [facility], [place], [address], 06/14/2024 09:06:27 06/13/20 24 06/14/2024 CBC WITH DIFFE RENTI AL/PL ATELE T immature grans (abs) 0.0 x10e3 /uL 0.0-0. 1 Not Available [facility] ([facility]) [address] [facility], [place], [address], 06/14/2024 09:06:27 Result Notes None recorded. Problems Name Problem SNOMED Code Status Onset Date Resolution Date Notes Provider Name and Address Organization Details Recorded Time Hypothyroid ism 50751789 Active 2023 RIAN Olson Attn: [facility] [facility] [place], [address], [place] [facility] 4 01:06:33 Hyperlipide debbi 32581835 Active 2023 RIAN Olson Attn: [facility] [place], [address], [place] [facility] 4 01:06:34 Prediabetes 019307555 Active 2023 RIAN Olson Attn: [facility] [place], [address], [place] [facility] 4 01:06:35 Long-term drug therapy Active 2023 RIAN Olson Attn: [facility] [facility], [place], [address], [place] [facility] 4 01:06:36 Obesity 150726012 Active 2023 RIAN Olson Attn: [facility] [facility], [place], [address], [place] [facility] 4 01:08:25 Body mass index 40+ - severely obese 022218791 Active 2023 RIAN Olson Attn: [facility] [facility], [place], [address], [place] [facility] 4 01:08:26 Well controlled type 2 diabetes mellitus 904330083 Active 2024 RIAN Olson Attn: [facility] [facility], [place], [address], [place] [facility] 5 21:09:58 Bilateral wrist pain [id number] 9105 Active 2024 RIAN Olson Attn: [facility] [facility], [place], [address], [place] [facility] 5 21:11:20 Problem Notes None recorded. Procedures Surgical History Date Name Laterality Status Provider Name and Address Organization Details Recorded Time Tubal Ligation completed Jacqueline ayala [place] [facility] 10/14/2023 17:13:56 section completed Jacqueline Geiger [place] - [facility] 10/14/2023 17:14:10 Total hysterectomy completed Jacqueline Geiger MA [place] - [facility] 10/14/2023 17:14:21 Imaging Results None recorded. Procedure Notes None recorded. Medical Equipment None Reported. Allergies Allergen ID Allergen Name Allergen Category Reaction Reaction Severity Criticality Documentation Date Start Date Code Code System Note Provider Name and Address Organization Details Recorded Time 433060 Product containin g penicilli n (product) medicatio n rash Not available low 10/14/2023 64749 8001 SNOMED Jacqueline Geiger [place] null, [place] - [facility] 4 17:10:05 Medications Name Sig Start Date Stop Date Status Note LastModified by Organization Details LastModified Time atorvastati n 20 mg tablet TAKE 1 TABLET BY MOUTH ONCE DAILY active Not Available Not Available No t Available azithromyci n 250 mg tablet TAKE 2 TABLETS BY MOUTH ON DAY 1, AND THEN TAKE 1 TABLET BY MOUTH ONCE A DAY ON DAY 2 THROUGH DAY 5 08/19 completed Not Available Not Available Not Available benzonatate 200 mg capsule TAKE 1 CAPSULE BY MOUTH THREE TIMES DAILY 08/19 completed Not Available Not Available Not Available prednisone 20 mg tablet TAKE 2 TABLETS BY MOUTH ONCE DAILY FOR 5 DAYS 08/19 completed Not Available Not Available Not Available ciprofloxac in 500 mg tablet TAKE 1 TABLET BY MOUTH TWICE A DAY 10/22 completed Not Available Not Available Not Available levothyroxi ne 75 mcg tablet TAKE 1 TABLET BY MOUTH ONCE DAILY active Not Available Not Available No t Available methocarbam ol 750 mg tablet TAKE 1 TABLET 3 TIMES A DAY BY ORAL ROUTE NEEDED. 10/22 completed Not Available Not Available Not Available benzonatate 100 mg capsule TAKE 1 CAPSULE BY MOUTH TWICE A DAY NEEDED FOR COUGH 10/22 completed Not Available Not Available Not Available albuterol sulfate HFA 90 mcg/actuati on aerosol inhaler INHALE 2 PUFFS 4 TIMES A DAY NEEDED FOR SHORTNESS OF BREATH OR FOR WHEEZE active Not Available Not Available No t Available ondansetron 4 mg disintegrat ing tablet DISSOLVE 1 TABLET IN MOUTH EVERY 4 TO 6 HOURS active Not Available Not Available No t Available sertraline 50 mg tablet TAKE 1 TABLET BY MOUTH ONCE DAILY active Not Available Not Available No t Available rosuvastati n 10 mg tablet TAKE 1 TABLET BY MOUTH EVERY DAY 10/22 completed Not Available Not Available Not Available atorvastati n 10/22 completed Not Available Not Available Not Available OneTouch Verio test strips USE 1 STRIP TO CHECK GLUCOSE TWICE DAILY active Not Available Not Available No t Available [facility] spacer USE DIRECTED WITH INHALER active Not Available Not Available No t Available Ozempic 0.25 mg or 0.5 mg (2 mg/3 mL) subcutaneou s pen injector WEEK 1-4 INJECT 0.25MG SUBCUTANE OUSLY ONCE A WEEK. WEEK 5 ONWARD INJECT 0.5 SUBCUTANE OUSLY ONCE A WEEK active Not Available Not Available No t Available Vitals Date Recorded Systolic blood pressure Diastolic blood pressure Provider Name and Address Organization Details Last Updated DateTime 07/07/2024 110 mm[Hg] 70 mm[Hg] RIAN Olson Attn: [address] [place], [address], [facility] 07/07/2024 15:12:36 Date Recorded Body height Body mass index (BMI) Body weight Respiratory rate Oxygen saturation Oxygen saturation in Arterial blood by Pulse oximetry Heart rate Systolic blood pressure Diastolic blood pressure Provider Name and Address Organization Details Last Updated DateTime 5 162.56 cm 42.4 kg/m2 012926. 32 g 18 /min 98 % 98 % 79 /min 118 mm[Hg] 82 mm[Hg] Jaime Ngo MA [facility] 5 14:57:22 Date Recorded Respiratory rate Systolic blood pressure Diastolic blood pressure Provider Name and Address Organization Details Last Updated DateTime 10/14/2023 18 /min 110 mm[Hg] 70 mm[Hg] RIAN Olson Attn: [address] [place], [address], [facility] 10/14/2023 17:34:03 Date Recorded Body height Body mass index (BMI) Body weight Heart rate Oxygen saturation Oxygen saturation in Arterial blood by Pulse oximetry Systolic blood pressure Diastolic blood pressure Provider Name and Address Organization Details Last Updated DateTime 162.56 cm 42.2 kg/m2 438573 g 89 /min 96 % 96 % 110 mm[Hg] 70 mm[Hg] Jacqueline Geiger MA [facility] 4 17:21:06 Social History Question Answer Notes LastModified by Organizat ion Details LastModified Time Tobacco Smoking Status Former Smoker Jacqueline Geiger MA null, [facility] 10/14/2023 17:12:14 Do You Have An Advance Directive? No Information not available 10/14/2023 Are You Blind Or Do You Have Difficulty Seeing? Yes Glasses Information not available 10/14/2023 What Is Your Level Of Caffeine Consumption? Moderate Coke Information not available 10/14/2023 In The 14 Days Before Symptom Onset, Have You Had Close Contact With A Laboratory-confir med COVID-19 While That Case Was Ill? No Information not available 10/14/2023 In The 14 Days Before Symptom Onset, Have You Had Close Contact With A Person Who Is Under Investigation For COVID-19 While That Person Was Ill? No Information not available 10/14/2023 Have You Been To An Area Known To Be High Risk For COVID-19? No Information not available 10/14/2023 Are You Deaf Or Do You Have Serious Difficulty Hearing? No Information not available 10/14/2023 What Type Of Diet Are You Following? REGULAR Information not available 10/14/2023 What Is The Highest Grade Or Level Of School You Have Completed Or The Highest Degree You Have Received? [id number] Information not available 10/14/2023 Are There Any Guns Present In Your Home? Yes Information not available 10/14/2023 What Was The Date Of Your Most Recent Tobacco Screening? 07/07/2024 [email or web address] Information not available 07/07/2024 What Is Your Relationship Status? Single Information not available 10/14/2023 Do You Use Your Seat Belt Or Car Seat Routinely? Yes Information not available 10/14/2023 Do You Have Smoke And Carbon Monoxide Detectors In Your Home? Yes Information not available 10/14/2023 How Much Tobacco Do You Smoke? 0.25 PPD Information not available 10/14/2023 Do You Use Sunscreen Routinely? Yes Information not available 10/14/2023 Has Tobacco Cessation Counseling Been Provided? No Information not available 10/14/2023 How Many Years Have You Smoked Tobacco? 40 Information not available 10/14/2023 How Many Years Have You Used E-cigarettes Or Vape? 4 Information not available 10/14/2023 Sex: Female Functional Status Question Answer Note LastModified by OrganAvectraat ion Details LastModified Time Do you use any illicit or recreational drugs? No Information not available 10/14/2023 Do you or have you ever used any other forms of tobacco or nicotine? Yes Information not available 10/14/2023 What is your level of alcohol consumption? None Information not available 10/14/2023 Do you or have you ever used smokeless tobacco? Never used smokeless tobacco Information not available 10/14/2023 Are you currently employed? Yes Information not available 10/14/2023 Are you able to care for yourself? 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 Current user of electronic cigarettes Information not available 10/14/2023 What is your exercise level? None Information not available 10/14/2023 Mental Status Question Answer Note LastModified by Organization D etails LastModified Time Do you feel stressed (tense, restless, nervous, or anxious, or unable to sleep at night)? [id number] Information not available 10/14/2023 Family History Relationship Description Onset Age of this Age Resolved Age Notes LastModified by Organization Details LastModified Time Brother Harmful pattern of use of alcohol mebyma Not available 2023 17:15:18 Brother Attention deficit hyperactivit y disorder mebyma Not available 10/13 17:15:25 Brother Diabetes mellitus mebyma Not available 2023 17:15:39 Mother Diabetes mellitus mebyma Not available 2023 17:15:39 Father Neoplasm of stomach mebyma Not available 2023 17:18:22 Medical History Condition Response Diabetes Y Thyroid Problems Y Depression Y High Cholesterol Y Gynecological HistoryNo gynecological history recorded. Obstetrics History GPAL:G 0 P 0 0 0 0 Immunizations Vaccine Type Date Status Note Provider Nam e and Address Organization Details Recorded Time COVID-19, mRNA, LNP-S, PF, 100 mcg/0.5mL dose or 50 mcg/0.25mL dose 07/03/2021 completed Jaime Ngo MA null, [place] - [facility] 05/20/2024 16:30:04 COVID-19, mRNA, LNP-S, PF, 100 mcg/0.5mL dose or 50 mcg/0.25mL dose 2020 completed Jaime Ngo [place], [place] [facility] 05/20/2024 16:30:04 COVID-19, mRNA, LNP-S, PF, 100 mcg/0.5mL dose or 50 mcg/0.25mL dose 09/03/2020 polo Martinier, MA charles, [facility] 05/20/2024 16:30:04 Influenza, split virus, trivalent, PF 04/10/2017 completed Jaime Ngo MA charles, [facility] 05/20/2024 16:30:04 Past Encounters Encounter ID Performer Location Encounter Start Date Encounter Closed Date Diagnosis/Indication Diagnosis SNOMED-CT Code Diagnosis ICD10 Code Diagnosis Note [id number] Agapito Gamboa MD [facility] [employer] [address] [place] [address] 10/14/2023 17:00:37 10/14/2023 17:36:38 Hypothyroidism 84097682 E03.9 stable on thyroid supplement . due for labs in december Long-term drug therapy 020948192 Z79.899 Cbc and cmp due next labs. Hyperlipidemia 18910761 E78.5 stable on statin therapy. due for fasting labs in december. Prediabetes 787059472 R7 3.03 diet controlled . due for f/u a1c in december. Body mass index 40+ - severely obese 517167365 Z68.41 Obesity 724268443 E66.9 discussed healthy diet, exercise, controllin g carbohydra ara and added sugars in the diet [id number] Agapito Gamboa MD [facility] [employer] [address] [place] [address] 07/07/2024 14:37:51 07/07/2024 15:31:45 Long-term drug therapy 933830713 Z79.899 Refill sertraline therapy and check CBC and CMP on September labs Hypothyroidism 64832316 E03.9 stable on thyroid supplement . Repeat thyroid function panel in September and refill levothyrox ine 75 mcg daily Hyperlipidemia 92174872 E78.5 has not been taking atorvastat in 20mg daily. she needs to take that. Refill provided Body mass index 40+ - severely obese 951633399 Z68.41 BMI is 42.4 Obesity 419979112 E66.9 discussed healthy diet, exercise, controllin g carbohydra ara and added sugars in the diet Well contr olled type 2 diabetes mellitus 874896096 E11.9 6.7% A1c has now progressed to officially type 2 diabetes. Start Ozempic therapy if insurance will authorize. Cough 59622903 R05.9 Patient for over a week has had upper respirator y symptoms including an aggressive cough head and chest congestion . 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 We will start a Z-Carlos as well as prednisone 40 mg daily for 5 days and benzonatat e 200 mg 3 times daily Adult heal th examination 362413644 Z00.01 Annual wellness exam completed, next set of labs are due in September Bilateral wrist pain [id number] 8504743 M25.532 Check nerve conduction study of upper extremitie s for bilateral wrist pain with high suspicion for carpal tunnel syndrome Health Concerns Section Related Observation LastModified by Organization Detai ls LastModified Time None Recorded Concern Status LastModified by Organization Details LastModified Time None Recorded Advance Directives Directive N: Payers Encounter Date Sequence Insurance Name Policy Number Policy Borjas Covered Member ID Borjas Member ID Guarantor Name 10/14/2023 1 [facility] [id number] [facility] [id number] [facility] 07/07/[address] [place] [address] [id number] [facility] [id number] [facility] Notes Date Note Type Note Provider Name and Address Organization Details Recorded Time 10/14/2023 text/html Anxiety/Depressi onRepo rted bypatient.Notes:taking sertraline routinely now.Hand/FingersReport ed bypatient.Notes: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 numbness in right 4th and 5th digits. fingers stiffin/lock at times.HyperlipidemiaRe ported bypatient.Notes:pt reports she is on atorvastatin now, not sure of dose. it is not synced from pharmacy yet.ThyroidReported bypatient.Notes:on thyroid supplement. trying to take regularly. Prediabetes on last set of labs at old PCP office. 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 numbness in right 4th and 5th digits. fingers stiffin/lock at times.HyperlipidemiaRe ported bypatient.Notes:pt reports she is on atorvastatin now, not sure of dose. it is not synced from pharmacy yet.ThyroidReported bypatient.Notes:on thyroid supplement. 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
--- OUTSIDE RECORDS SUMMARY | 2024-11-24 12:41 | XMS_ITS | Data Portability ---
Author Organization [facility] [employer], Main Office Address [address] [place] [address] Assessment No assessment recorded. Plan of Treatment Reminders Order Date Submit Date Provider Last Modified By Organization Details Last Modified Time Details Appointments None recorded. Lab lipid panel, serum 2022 024 [email or web address] [facility], [address], [place], [address], 4 10:08:38 HbA1c (hemoglobin A1c), blood 2022 024 [email or web address] [facility], [address], [place], [address], 4 10:08:38 urinalysis, dipstick 2022 023 [email or web address] [facility], [address], [place], [address], 3 17:06:36 CMP, serum or plasma 2022 024 [email or web address] [facility], [address], [place], [address], 4 10:08:38 TSH + free T4, serum 2022 024 [email or web address] [facility], [address], [place], [address], 4 10:08:38 Referral None recorded. Procedures None recorded. Surgeries None recorded. Imaging None recorded. Medication Orders ciprofloxac in 500 mg tablet 2022 023 AZRA [facility] [id number], [place], [address], 3 17:10:32 methocarbam ol 750 mg tablet 2022 023 [email or web address] [facility] [id number], [place], [address], 3 23:22:29 Patient TargetsNo targets recorded. Patient InstructionsNo instructions recorded. Reason for Referral None Reported. Results Created Date Observation Date Name Description Value Unit Range Abnormal Flag Note LastModifiedBy Organization Detail LastModifiedTime 12/21/19 21 12/21/2020 HEMOG LOBIN A1C hemoglobin A1C 6.2 % 4.8-5. 6 above high normal Predi abete s: 5.7 - 6.4 Diabe ara: >6.4 Glyce mk contr ol for adult s with diabe ara: <7.0 Not Available [facility] ([facility]) [address] [place], [address], 12/21/2020 08:17:58 12/21/19 21 12/21/2020 LIPID PANEL W/ CHOL/ HDL RATIO cholesterol, total 216 mg/dL 100-19 9 above high normal Not Available [facility] ([facility]) [address] [place], [address], 12/21/2020 08:17:57 12/21/19 21 12/21/2020 LIPID PANEL W/ CHOL/ HDL RATIO triglyceride s 181 mg/dL 0-149 above high normal Not Available [facility] ([facility]) [address] [place], [address], 12/21/2020 08:17:57 12/21/19 21 12/21/2020 LIPID PANEL W/ CHOL/ HDL RATIO HDL cholesterol 37 mg/dL >39 below low normal Not Available [facility] ([facility]) [address] [facility], [place], [address], 12/21/2020 08:17:57 12/21/19 21 12/21/2020 LIPID PANEL W/ CHOL/ HDL RATIO VLDL cholesterol leeroy 33 mg/dL 5-40 Not Available [facility] ([facility]) [address] [place], [address], 12/21/2020 08:17:57 12/21/19 21 12/21/2020 LIPID PANEL W/ CHOL/ HDL RATIO LDL chol calc ([facility]) 146 mg/dL 0-99 above high normal Not Available [facility] ([facility]) [address] [place], [address], 12/21/2020 08:17:57 12/21/19 21 12/21/2020 LIPID PANEL W/ CHOL/ HDL 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 chol/HDL ratio 5.8 ratio 0.0-4. 4 above high normal T. Chol/ HDL Ratio Men Women 1/2 Avg.R isk 3.4 3.3 Avg.R isk 5.0 4.4 2X Avg.R isk 9.6 7.1 3X Avg.R isk 23.4 11.0 Not Available [facility] ([facility]) [address] [facility], [place], [address], 12/21/2020 08:17:57 12/21/1912/21/2020 CBC WITH DIFFE RENTI AL/PL ATELE T WBC 5.9 x10e3 /uL 3.4-10 .8 Not Available [facility] ([facility]) [address] [place], [address], 12/21/2020 08:17:57 12/21/19 21 12/21/2020 CBC WITH DIFFE RENTI AL/PL ATELE T RBC 4.10 x10e6 /uL 3.77-5 .28 Not Available [facility] ([facility]) [address] [place], [address], 12/21/2020 08:17:57 12/21/19 21 12/21/2020 CBC WITH DIFFE RENTI AL/PL ATELE T hemoglobin 12.3 g/dL 11.1-1 5.9 Not Available [facility] ([facility]) [address] [facility], [place], [address], 12/21/2020 08:17:57 12/21/1912/21/2020 CBC WITH DIFFE RENTI AL/PL ATELE T hematocrit 37.1 % 34.0-4 6.6 Not Available [facility] ([facility]) [address] [facility], [place], [address], 12/21/2020 08:17:57 12/21/1912/21/2020 CBC WITH DIFFE RENTI AL/PL ATELE T MCV 91 fL 79-97 Not Available [facility] ([facility]) [address] [place], [address], 12/21/2020 08:17:57 12/21/1912/21/2020 CBC WITH DIFFE RENTI AL/PL ATELE T MCH 30.0 pg 26.6-3 3.0 Not Available [facility] ([facility]) [address] [place], [address], 12/21/2020 08:17:57 12/21/1912/21/2020 CBC WITH DIFFE RENTI AL/PL ATELE T MCHC 33.2 g/dL 31.5-3 5.7 Not Available [facility] ([facility]) [address] [place], [address], 12/21/2020 08:17:57 12/21/19 21 12/21/2020 CBC WITH DIFFE RENTI AL/PL ATELE T RDW 13.1 % 11.7-1 5.4 Not Available [facility] ([facility]) [address] [facility], [place], [address], 12/21/2020 08:17:57 12/21/19 21 12/21/2020 CBC WITH DIFFE RENTI AL/PL ATELE T platelets 293 x10e3 /uL 150-45 0 Not Available [facility] ([facility]) [address] [facility], [place], [address], 12/21/2020 08:17:57 12/21/19 21 12/21/2020 CBC WITH DIFFE RENTI AL/PL ATELE T neutrophils 60 % not estab. Not Available [facility] ([facility]) [address] [facility], [place], [address], 12/21/2020 08:17:57 12/21/19 21 12/21/2020 CBC WITH DIFFE RENTI AL/PL ATELE T lymphs 30 % not estab. Not Available [facility] ([facility]) [address] [facility], [place], [address], 12/21/2020 08:17:57 12/21/19 21 12/21/2020 CBC WITH DIFFE RENTI AL/PL ATELE T monocytes 7 % not estab. Not Available [facility] ([facility]) [address] [facility], [place], [address], 12/21/2020 08:17:57 12/21/19 21 12/21/2020 CBC WITH DIFFE RENTI AL/PL ATELE T eos 2 % not estab. Not Available [facility] ([facility]) [address] [facility], [place], [address], 12/21/2020 08:17:57 12/21/19 21 12/21/2020 CBC WITH DIFFE RENTI AL/PL ATELE T basos 0 % not estab. 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 0 Not Available [facility] ([facility]) [address] [facility], [place], [address], 12/21/2020 08:17:57 12/21/19 21 12/21/2020 CBC WITH DIFFE RENTI AL/PL ATELE T lymphs (absolute) 1.8 x10e3 /uL 0.7-3. 1 Not Available [facility] ([facility]) [address] [place], [address], 12/21/2020 08:17:57 12/21/19 21 12/21/2020 CBC WITH DIFFE RENTI AL/PL ATELE T monocytes(ab solute) 0.4 x10e3 /uL 0.1-0. 9 Not Available [facility] ([facility]) [address] [place], [address], 12/21/2020 08:17:57 12/21/19 21 12/21/2020 CBC WITH DIFFE RENTI AL/PL ATELE T eos (absolute) 0.1 x10e3 /uL 0.0-0. 4 Not Available [facility] ([facility]) [address] [facility], [place], [address], 12/21/2020 08:17:57 12/21/19 21 12/21/2020 CBC WITH DIFFE RENTI AL/PL ATELE T baso (absolute) 0.0 x10e3 /uL 0.0-0. 2 Not Available [facility] ([facility]) [address] [place], [address], 12/21/2020 08:17:57 12/21/19 21 12/21/2020 CBC WITH DIFFE RENTI AL/PL ATELE T immature granulocytes 1 % not estab. Not Available [facility] ([facility]) [address] [facility], [place], [address], 12/21/2020 08:17:57 12/21/19 21 12/21/2020 CBC WITH DIFFE RENTI AL/PL ATELE T immature grans (abs) 0.0 x10e3 /uL 0.0-0. 1 Not Available [facility] ([facility]) [address] [place], [address], 12/21/2020 08:17:57 12/21/19 21 12/21/2020 CBC WITH DIFFE RENTI AL/PL ATELE T NRBC 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 Not Available [facility] ([facility]) [address] [place], [address], 12/21/2020 08:17:57 12/21/19 21 12/21/2020 CBC WITH DIFFE RENTI AL/PL ATELE T hematology comments: 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 Not Available [facility] ([facility]) [address] [place], [address], 12/21/2020 08:17:57 12/21/19 21 12/21/2020 TSH+F REE T4 TSH 6.560 uIU/m L 0.450- 4.500 above high normal Not Available [facility] ([facility]) [address] [place], [address], 12/21/2020 08:17:56 12/21/19 21 12/21/2020 TSH+F REE T4 T4,free(dire ct) 0.93 NG/dL 0.82-1 .77 Not Available [facility] ([facility]) [address] [facility] [place], [address], 12/21/2020 08:17:56 12/21/19 21 12/21/2020 CMP14 +EGFR glucose 138 mg/dL 65-99 above high normal Not Available [facility] ([facility]) [address] [facility] [place], [address], 12/21/2020 08:17:56 12/21/19 21 12/21/2020 CMP14 +EGFR BUN 13 mg/dL 6-24 Not Available [facility] ([facility]) [address] [facility] [place], [address], 12/21/2020 08:17:56 12/21/19 21 12/21/2020 CMP14 +EGFR creatinine 0.81 mg/dL 0.57-1 .00 Not Available [facility] ([facility]) [address] [place], [address], 12/21/2020 08:17:56 12/21/19 21 12/21/2020 CMP14 +EGFR eGFR if nonafricn AM 83 mL/mi n/1.7 3 >59 Not Available [facility] ([facility]) [address] [facility] [place], [address], 12/21/2020 08:17:56 12/21/19 21 12/21/2020 CMP14 +EGFR eGFR if africn AM 95 mL/mi n/1.7 3 >59 Lab all curre ntly repor ts eGFR in compl iance with the curre nt recom menda tions of the [facility] . [facility] will updat e repor ting as new guide lines are publi shed from the NKF-A SN Task force . Not Available [facility] ([facility]) [address] [place], [address], 12/21/2020 08:17:56 12/21/19 21 12/21/2020 CMP14 +EGFR BUN/creatini ne ratio 16 9-23 Not Available [facility] ([facility]) [address] [place], [address], 12/21/2020 08:17:56 12/21/19 21 12/21/2020 CMP14 +EGFR sodium 138 mmol/ L 134-14 4 Not Available [facility] ([facility]) [address] [place], [address], 12/21/2020 08:17:56 12/21/19 21 12/21/2020 CMP14 +EGFR potassium 4.7 mmol/ L 3.5-5. 2 Not Available [facility] ([facility]) [address] [place], [address], 12/21/2020 08:17:56 12/21/19 21 12/21/2020 CMP14 +EGFR chloride 101 mmol/ L 96-106 Not Available [facility] ([facility]) [address] [place], [address], 12/21/2020 08:17:56 12/21/19 21 12/21/2020 CMP14 +EGFR carbon dioxide, total 18 mmol/ L 20-29 below low normal Not Available [facility] ([facility]) [address] [place], [address], 12/21/2020 08:17:56 12/21/19 21 12/21/2020 CMP14 +EGFR calcium 9.0 mg/dL 8.7-10 .2 Not Available [facility] ([facility]) [address] [place], [address], 12/21/2020 08:17:56 12/21/19 21 12/21/2020 CMP14 +EGFR protein, total 7.1 g/dL 6.0-8. 5 Not Available [facility] ([facility]) [address] [place], [address], 12/21/2020 08:17:56 12/21/19 21 12/21/2020 CMP14 +EGFR albumin 4.3 g/dL 3.8-4. 9 Not Available [facility] ([facility]) [address] [place], [address], 12/21/2020 08:17:56 12/21/19 21 12/21/2020 CMP14 +EGFR globulin, total 2.8 g/dL 1.5-4. 5 Not Available [facility] ([facility]) [address] [place], [address], 12/21/2020 08:17:56 12/21/19 21 12/21/2020 CMP14 +EGFR A/G ratio 1.5 1.2-2. 2 Not Available [facility] ([facility]) [address] [place], [address], 12/21/2020 08:17:56 12/21/19 21 12/21/2020 CMP14 +EGFR bilirubin, total 0.5 mg/dL 0.0-1. 2 Not Available [facility] ([facility]) [address] [place], [address], 12/21/2020 08:17:56 12/21/19 21 12/21/2020 CMP14 +EGFR alkaline phosphatase 97 IU/L 48-121 Not Available [facility] ([facility]) [address] [place], [address], 12/21/2020 08:17:56 12/21/19 21 12/21/2020 CMP14 +EGFR AST (SGOT) 20 IU/L 0-40 Not Available [facility] ([facility]) [address] [place], [address], 12/21/2020 08:17:56 12/21/19 21 12/21/2020 CMP14 +EGFR ALT (SGPT) 19 IU/L 0-32 Not Available [facility] ([facility]) [address] [facility], [place], [address], 12/21/2020 08:17:56 12/21/19 21 12/21/2020 TSH+F REE T4 TSH 6.620 uIU/m L 0.450- 4.500 above high normal Not Available [facility] ([facility]) [address] [facility], [place], [address], 12/21/2020 08:17:54 12/21/19 21 12/21/2020 TSH+F REE T4 T4,free(dire ct) 1.02 NG/dL 0.82-1 .77 Not Available [facility] ([facility]) [address] [place], [address], 12/21/2020 08:17:54 03/10/2003/11/2021 UA/M W/RFL X CULTU RE, ROUTI NE specific gravity 1.029 1.005- 1.030 Not Available [facility] ([facility]) [address] [place], [address], 03/11/2021 09:11:57 03/10/20 21 03/11/2021 UA/M W/RFL X CULTU RE, ROUTI NE pH 6.0 5.0-7. 5 Not Available [facility] ([facility]) [address] [place], [address], 03/11/2021 09:11:57 03/10/20 21 03/11/2021 UA/M W/RFL X CULTU RE, ROUTI NE urine-color yellow yellow Not Available [facility] ([facility]) [address] [place], [address], 03/11/2021 09:11:57 03/10/20 21 03/11/2021 UA/M W/RFL X CULTU RE, ROUTI NE appearance clear clear Not Available [facility] ([facility]) [address] [facility] [place], [address], 03/11/2021 09:11:57 03/10/20 21 03/11/2021 UA/M W/RFL X CULTU RE, ROUTI NE WBC esterase negati ve negati ve Not Available [facility] ([facility]) [address] [facility], [place], [address], 03/11/2021 09:11:57 03/10/20 21 03/11/2021 UA/M W/RFL X CULTU RE, ROUTI NE protein negati ve negati ve/tra ce Not Available [facility] ([facility]) [address] [facility], [place], [address], 03/11/2021 09:11:57 03/10/2003/11/2021 UA/M W/RFL X CULTU RE, ROUTI NE glucose negati ve negati ve Not Available [facility] ([facility]) [address] [facility], [place], [address], 03/11/2021 09:11:57 03/10/2003/11/2021 UA/M W/RFL X CULTU RE, ROUTI NE ketones trace negati ve abnormal Not Available [facility] ([facility]) [address] [facility], [place], [address], 03/11/2021 09:11:57 03/10/2003/11/2021 UA/M W/RFL X CULTU RE, ROUTI NE occult blood negati ve negati ve Not Available [facility] ([facility]) [address] [place], [address], 03/11/2021 09:11:57 03/10/2003/11/2021 UA/M W/RFL X CULTU RE, ROUTI NE bilirubin negati ve negati ve Not Available [facility] ([facility]) [address] [place], [address], 03/11/2021 09:11:57 03/10/20 21 03/11/2021 UA/M W/RFL X CULTU RE, ROUTI NE urobilinogen ,semi-qn 2.0 mg/dL 0.2-1. 0 above high normal Not Available [facility] ([facility]) [address] [facility], [place], [address], 03/11/2021 09:11:57 03/10/20 21 03/11/2021 UA/M W/RFL X CULTU RE, ROUTI NE nitrite, urine negati ve negati ve Not Available [facility] ([facility]) [address] [facility], [place], [address], 03/11/2021 09:11:57 03/10/20 21 03/11/2021 UA/M W/RFL X CULTU RE, ROUTI NE microscopic examination commen t Micro scopi c follo ws if indic ated. Not Available [facility] ([facility]) [address] [facility], [place], [address], 03/11/2021 09:11:57 03/10/20 21 03/11/2021 UA/M W/RFL X CULTU RE, ROUTI NE microscopic examination see below: Micro scopi c was indic ated and was perfo rmed. Not Available [facility] ([facility]) [address] [facility], [place], [address], 03/11/2021 09:11:57 03/10/20 21 03/11/2021 UA/M W/RFL X CULTU RE, ROUTI NE WBC 0-5 /hpf 0 - 5 Not Available [facility] ([facility]) [address] [place], [address], 03/11/2021 09:11:57 03/10/20 21 03/11/2021 UA/M W/RFL X CULTU RE, ROUTI NE RBC 0-2 /hpf 0 - 2 Not Available [facility] ([facility]) [address] [facility], [place], [address], 03/11/2021 09:11:57 03/10/20 21 03/11/2021 UA/M W/RFL X CULTU RE, ROUTI NE epithelial cells (non renal) 0-10 /hpf 0 - 10 Not Available [facility] ([facility]) [address] [facility], [place], [address], 03/11/2021 09:11:57 03/10/20 21 03/11/2021 UA/M W/RFL X CULTU RE, ROUTI NE epithelial cells (renal) 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 Not Available [facility] ([facility]) [address] [facility], [place], [address], 03/11/2021 09:11:57 03/10/20 21 03/11/2021 UA/M W/RFL X CULTU RE, ROUTI NE casts none seen /lpf none seen Not Available [facility] ([facility]) [address] [facility], [place], [address], 03/11/2021 09:11:57 03/10/2003/11/2021 UA/M W/RFL X CULTU RE, ROUTMaria Del Rosario NE cast type 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 Not Available [facility] ([facility]) [address] [facility], [place], [address], 03/11/2021 09:11:57 03/10/2003/11/2021 UA/M W/RFL X CULTU RE, ROUTI NE crystals presen t n/a abnormal Not Available [facility] ([facility]) [address] [facility], [place], [address], 03/11/2021 09:11:57 03/10/2003/11/2021 UA/M W/RFL X CULTU RE, ROUTI NE crystal type calciu m oxalat e n/a Not Available [facility] ([facility]) [address] [facility], [place], [address], 03/11/2021 09:11:57 03/10/20 21 03/11/2021 UA/M W/RFL X CULTU RE, ROUTI NE mucus threads 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 Not Available [facility] ([facility]) [address] [facility], [place], [address], 03/11/2021 09:11:57 03/10/20 21 03/11/2021 UA/M W/RFL X CULTU RE, ROUTI NE bacteria few none seen/f ew Not Available [facility] ([facility]) [address] [facility], [place], [address], 03/11/2021 09:11:57 03/10/20 21 03/11/2021 UA/M W/RFL X CULTU RE, ROUTI NE yeast 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 Not Available [facility] ([facility]) [address] [facility], [place], [address], 03/11/2021 09:11:57 03/10/20 21 03/11/2021 UA/M W/RFL X CULTU RE, ROUTI NE trichomonas 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 Not Available [facility] ([facility]) [address] [place], [address], 03/11/2021 09:11:57 03/10/20 21 03/11/2021 UA/M W/RFL X CULTU RE, ROUTI NE comment 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 Not Available [facility] ([facility]) [address] [place], [address], 03/11/2021 09:11:57 03/10/20 21 03/11/2021 UA/M W/RFL X CULTU RE, ROUTI NE urinalysis reflex commen t This speci men will not refle x to a Urine Cultu re. Not Available [facility] ([facility]) [address] [place], [address], 03/11/2021 09:11:57 10/15/19 22 10/16/2021 URINE CULTU RE, ROUTI NE urine culture, routine final report Not Available [facility] ([facility]) [address] [place], [address], 10/16/2021 20:07:58 10/15/19 22 10/16/2021 URINE CULTU RE, ROUTI NE result 1 commen t Mixed uroge nital clau 10,00 0-25, 000 colon y formi ng units per mL Not Available [facility] ([facility]) [address] [place], [address], 10/16/2021 20:07:58 10/15/19 22 10/15/2021 HEMOG LOBIN A1C hemoglobin A1C 6.1 % 4.8-5. 6 above high normal Predi abete s: 5.7 - 6.4 Diabe ara: >6.4 Glyce mk contr ol for adult s with diabe ara: <7.0 Not Available [facility] ([facility]) [address] [place], [address], 10/16/2021 20:07:58 10/15/19 22 10/15/2021 LIPID PANEL W/ CHOL/ HDL RATIO cholesterol, total 210 mg/dL 100-19 9 above high normal Not Available [facility] ([facility]) [address] [place], [address], 10/16/2021 20:07:57 10/15/19 22 10/15/2021 LIPID PANEL W/ CHOL/ HDL RATIO triglyceride s 162 mg/dL 0-149 above high normal Not Available [facility] ([facility]) [address] [place], [address], 10/16/2021 20:07:57 10/15/19 22 10/15/2021 LIPID PANEL W/ CHOL/ HDL RATIO HDL cholesterol 40 mg/dL >39 Not Available [facility] ([facility]) [address] [place], [address], 10/16/2021 20:07:57 10/15/19 22 10/15/2021 LIPID PANEL W/ CHOL/ HDL RATIO VLDL cholesterol leeroy 29 mg/dL 5-40 Not Available [facility] ([facility]) [address] [place], [address], 10/16/2021 20:07:57 10/15/19 22 10/15/2021 LIPID PANEL W/ CHOL/ HDL RATIO LDL chol calc ([facility]) 141 mg/dL 0-99 above high normal Not Available [facility] ([facility]) [address] [place], [address], 10/16/2021 20:07:57 10/15/19 22 10/15/2021 LIPID PANEL W/ CHOL/ HDL 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 chol/HDL ratio 5.3 ratio 0.0-4. 4 above high normal T. Chol/ HDL Ratio Men Women 1/2 Avg.R isk 3.4 3.3 Avg.R isk 5.0 4.4 2X Avg.R isk 9.6 7.1 3X Avg.R isk 23.4 11.0 Not Available [facility] ([facility]) [address] [place], [address], 10/16/2021 20:07:57 10/15/19 22 10/15/2021 URINA LYSIS , COMPL ETE specific gravity 1.015 1.005- 1.030 Not Available [facility] ([facility]) [address] [place], [address], 10/16/2021 20:07:57 10/15/19 22 10/15/2021 URINA LYSIS , COMPL ETE pH 7.0 5.0-7. 5 Not Available [facility] ([facility]) [address] [facility], [place], [address], 10/16/2021 20:07:57 10/15/19 22 10/15/2021 URINA LYSIS , COMPL ETE urine-color yellow yellow Not Available [facility] ([facility]) [address] [facility], [place], [address], 10/16/2021 20:07:57 10/15/19 22 10/15/2021 URINA LYSIS , COMPL ETE appearance clear clear Not Available [facility] ([facility]) [address] [facility], [place], [address], 10/16/2021 20:07:57 10/15/19 22 10/15/2021 URINA LYSIS , COMPL ETE WBC esterase negati ve negati ve Not Available [facility] ([facility]) [address] [facility], [place], [address], 10/16/2021 20:07:57 10/15/19 22 10/15/2021 URINA LYSIS , COMPL ETE protein negati ve negati ve/tra ce Not Available [facility] ([facility]) [address] [facility], [place], [address], 10/16/2021 20:07:57 10/15/19 22 10/15/2021 URINA LYSIS , COMPL ETE glucose negati ve negati ve Not Available [facility] ([facility]) [address] [place], [address], 10/16/2021 20:07:57 10/15/19 22 10/15/2021 URINA LYSIS , COMPL ETE ketones negati ve negati ve Not Available [facility] ([facility]) [address] [place], [address], 10/16/2021 20:07:57 10/15/19 22 10/15/2021 URINA LYSIS , COMPL ETE occult blood negati ve negati ve Not Available [facility] ([facility]) [address] [facility], [place], [address], 10/16/2021 20:07:57 10/15/19 22 10/15/2021 URINA LYSIS , COMPL ETE bilirubin negati ve negati ve Not Available [facility] ([facility]) [address] [place], [address], 10/16/2021 20:07:57 10/15/19 22 10/15/2021 URINA LYSIS , COMPL ETE urobilinogen ,semi-qn 1.0 mg/dL 0.2-1. 0 Not Available [facility] ([facility]) [address] [place], [address], 10/16/2021 20:07:57 10/15/19 22 10/15/2021 URINA LYSIS , COMPL ETE nitrite, urine negati ve negati ve Not Available [facility] ([facility]) [address] [place], [address], 10/16/2021 20:07:57 10/15/19 22 10/15/2021 URINA LYSIS , COMPL ETE microscopic examination commen t Micro scopi c follo ws if indic ated. Not Available [facility] ([facility]) [address] [place], [address], 10/16/2021 20:07:57 10/15/19 22 10/15/2021 URINA LYSIS , COMPL ETE microscopic examination see below: Micro scopi c was indic ated and was perfo rmed. Not Available [facility] ([facility]) [address] [place], [address], 10/16/2021 20:07:57 10/15/19 22 10/15/2021 URINA LYSIS , COMPL ETE WBC 0-5 /hpf 0 - 5 Not Available [facility] ([facility]) [address] [place], [address], 10/16/2021 20:07:57 10/15/19 22 10/15/2021 URINA LYSIS , COMPL ETE RBC none seen /hpf 0 - 2 Not Available [facility] ([facility]) [address] [facility], [place], [address], 10/16/2021 20:07:57 10/15/19 22 10/15/2021 URINA LYSIS , COMPL ETE epithelial cells (non renal) 0-10 /hpf 0 - 10 Not Available [facility] ([facility]) [address] [facility], [place], [address], 10/16/2021 20:07:57 10/15/19 22 10/15/2021 URINA LYSIS , COMPL ETE epithelial cells (renal) 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 Not Available [facility] ([facility]) [address] [facility], [place], [address], 10/16/2021 20:07:57 10/15/19 22 10/15/2021 URINA LYSIS , COMPL ETE casts none seen /lpf none seen Not Available [facility] ([facility]) [address] [facility], [place], [address], 10/16/2021 20:07:57 10/15/19 22 10/15/2021 URINA LYSIS , COMPL ETE cast type 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 Not Available [facility] ([facility]) [address] [facility], [place], [address], 10/16/2021 20:07:57 10/15/19 22 10/15/2021 URINA LYSIS , COMPL ETE crystals 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 Not Available [facility] ([facility]) [address] [place], [address], 10/16/2021 20:07:57 10/15/19 22 10/15/2021 URINA LYSIS , COMPL ETE crystal type 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 Not Available [facility] ([facility]) [address] [facility], [place], [address], 10/16/2021 20:07:57 10/15/19 22 10/15/2021 URINA LYSIS , COMPL ETE mucus threads presen t not estab. Not Available [facility] ([facility]) [address] [facility], [place], [address], 10/16/2021 20:07:57 10/15/19 22 10/15/2021 URINA LYSIS , COMPL ETE bacteria none seen none seen/f ew Not Available [facility] ([facility]) [address] [facility], [place], [address], 10/16/2021 20:07:57 10/15/19 22 10/15/2021 URINA LYSIS , COMPL ETE yeast 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 Not Available [facility] ([facility]) [address] [facility], [place], [address], 10/16/2021 20:07:57 10/15/19 22 10/15/2021 URINA LYSIS , COMPL ETE trichomonas 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 Not Available [facility] ([facility]) [address] [place], [address], 10/16/2021 20:07:57 10/15/19 22 10/15/2021 URINA LYSIS , COMPL ETE comment 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 Not Available [facility] ([facility]) [address] [place], [address], 10/16/2021 20:07:57 10/15/19 22 10/15/2021 COMP. METAB OLIC PANEL (14) glucose 104 mg/dL 65-99 above high normal Not Available [facility] ([facility]) [address] [place], [address], 10/16/2021 20:07:57 10/15/19 22 10/15/2021 COMP. METAB OLIC PANEL (14) BUN 12 mg/dL 6-24 Not Available [facility] ([facility]) [address] [place], [address], 10/16/2021 20:07:57 10/15/19 22 10/15/2021 COMP. METAB OLIC PANEL (14) creatinine 0.66 mg/dL 0.57-1 .00 Not Available [facility] ([facility]) [address] [facility], [place], [address], 10/16/2021 20:07:57 10/15/19 22 10/15/2021 COMP. METAB OLIC PANEL (14) eGFR 104 mL/mi n/1.7 3 >59 Not Available [facility] ([facility]) [address] [facility], [place], [address], 10/16/2021 20:07:57 10/15/19 22 10/15/2021 COMP. METAB OLIC PANEL (14) BUN/creatini ne ratio 18 9-23 Not Available [facility] ([facility]) [address] [facility], [place], [address], 10/16/2021 20:07:57 10/15/19 22 10/15/2021 COMP. METAB OLIC PANEL (14) sodium 138 mmol/ L 134-14 4 Not Available [facility] ([facility]) [address] [facility], [place], [address], 10/16/2021 20:07:57 10/15/19 22 10/15/2021 COMP. METAB OLIC PANEL (14) potassium 4.7 mmol/ L 3.5-5. 2 Not Available [facility] ([facility]) [address] [facility], [place], [address], 10/16/2021 20:07:57 10/15/19 22 10/15/2021 COMP. METAB OLIC PANEL (14) chloride 101 mmol/ L 96-106 Not Available [facility] ([facility]) [address] [facility], [place], [address], 10/16/2021 20:07:57 10/15/19 22 10/15/2021 COMP. METAB OLIC PANEL (14) carbon dioxide, total 22 mmol/ L 20- Not Available [facility] ([facility]) [address] [facility], [place], [address], 10/16/2021 20:07:57 10/15/19 22 10/15/2021 COMP. METAB OLIC PANEL (14) calcium 8.8 mg/dL 8.7-10 .2 Not Available [facility] ([facility]) [address] [place], [address], 10/16/2021 20:07:57 10/15/19 22 10/15/2021 COMP. METAB OLIC PANEL (14) protein, total 6.9 g/dL 6.0-8. 5 Not Available [facility] ([facility]) [address] [facility], [place], [address], 10/16/2021 20:07:57 10/15/19 22 10/15/2021 COMP. METAB OLIC PANEL (14) albumin 4.2 g/dL 3.8-4. 9 Not Available [facility] ([facility]) [address] [place], [address], 10/16/2021 20:07:57 10/15/19 22 10/15/2021 COMP. METAB OLIC PANEL (14) globulin, total 2.7 g/dL 1.5-4. 5 Not Available [facility] ([facility]) [address] [place], [address], 10/16/2021 20:07:57 10/15/19 22 10/15/2021 COMP. METAB OLIC PANEL (14) A/G ratio 1.6 1.2-2. 2 Not Available [facility] ([facility]) [address] [place], [address], 10/16/2021 20:07:57 10/15/19 22 10/15/2021 COMP. METAB OLIC PANEL (14) bilirubin, total 0.4 mg/dL 0.0-1. 2 Not Available [facility] ([facility]) [address] [place], [address], 10/16/2021 20:07:57 10/15/19 22 10/15/2021 COMP. METAB OLIC PANEL (14) alkaline phosphatase 93 IU/L 44-121 Not Available [facility] ([facility]) [address] [place], [address], 10/16/2021 20:07:57 10/15/19 22 10/15/2021 COMP. METAB OLIC PANEL (14) AST (SGOT) 18 IU/L 0-40 Not Available [facility] ([facility]) [address] [place], [address], 10/16/2021 20:07:57 10/15/19 22 10/15/2021 COMP. METAB OLIC PANEL (14) ALT (SGPT) 17 IU/L 0-32 Not Available [facility] ([facility]) [address] [place], [address], 10/16/2021 20:07:57 10/15/19 22 10/15/2021 TSH+F REE T4 TSH 3.360 uIU/m L 0.450- 4.500 Not Available [facility] ([facility]) [address] [place], [address], 10/16/2021 20:07:56 10/15/19 22 10/15/2021 TSH+F REE T4 T4,free(dire ct) 0.97 NG/dL 0.82-1 .77 Not Available [facility] ([facility]) [address] [place], [address], 10/16/2021 20:07:56 03/19/20 23 03/19/2023 urina lysis , dipst ick Leukocytes (reference range: negative javier/ l) Negati ve Not Available [facility] [place] [address], [place], [address], 03/19/2023 17:05:59 03/19/20 23 03/19/2023 urina lysis , dipst ick Nitrite (reference rage: negative mg/dl) negati ve Not Available [facility] [place] [address], [place], [address], 03/19/2023 17:05:59 03/19/20 23 03/19/2023 urina lysis , dipst ick Urobilinogen (reference range: 0.2-1 mg/dl) 1 Not Available [facility] [place] [address], [place], [address], 03/19/2023 17:05:59 03/19/20 23 03/19/2023 urina lysis , dipst ick Protein (reference range: negative mg/dl) Trace Not Available [facility] [place] [address], [place], [address], 03/19/2023 17:05:59 03/19/20 23 03/19/2023 urina lysis , dipst ick pH (reference range: 5-7) 5.5 Not Available [facility] [place] [address], [place], [address], 03/19/2023 17:05:59 03/19/20 23 03/19/2023 urina lysis , dipst ick Blood (reference range: negative Jerson/ l) Negati ve Not Available [facility] [place] [address], [place], [address], 03/19/2023 17:05:59 03/19/20 23 03/19/2023 urina lysis , dipst ick Specific [place] (reference range: 1.005-1.030) 1.030 Not Available [facility] [place] [address], [place], [address], 03/19/2023 17:05:59 03/19/20 23 03/19/2023 urina lysis , dipst ick Ketone (reference range: negative mg/dl) Trace Not Available [facility] [place] [address], [place], [address], 03/19/2023 17:05:59 03/19/2003/19/2023 urina lysis , dipst ick Bilirubin (reference range: negative mg/dl) Small Not Available [facility] [place] [address], [place], [address], 03/19/2023 17:05:59 03/19/20 23 03/19/2023 urina lysis , dipst ick Glucose (reference range: negative mg/dl) Negati ve Not Available [facility] [place] [address], [place], [address], 03/19/2023 17:05:59 03/19/20 23 03/19/2023 urina lysis , dipst ick Appearance Slight ly Cloudy Not Available [facility] [place] [address], [place], [address], 03/19/2023 17:05:59 03/19/2003/19/2023 urina lysis , dipst ick Color Dark Yellow Not Available [facility] [place] [address], [place], [address], 03/19/2023 17:05:59 01/05/20 21 01/03/2021 MAMMO , scree leigh, digit al, bilat eral No observ ation record ed. MIGRATION. [facility] [address], [place], [address], 08/22/2022 07:34:30 01/05/20 21 01/03/2021 MAMMO , scree leigh, digit al, bilat eral No observ ation record ed. MIGRATION. [facility] [address], [place], [address], 08/22/2022 07:34:30 01/05/20 21 01/03/2021 MAMMO , scree leigh, digit al, bilat eral No observ ation record ed. MIGRATION. [facility] [address], [place], [address], 08/22/2022 07:34:30 03/13/20 21 03/10/2021 XR, lumba r spine No observ ation record ed. MIGRATION. [facility] [address], [place], [address], 08/22/2022 07:34:30 06/19/20 21 06/14/2021 CT, abdom en + pelvi s, w/o contr ast No observ ation record ed. MIGRATION. [facility] ([facility]) [address], [place], [address], 08/22/2022 07:34:30 10/21/19 22 10/20/2021 XR, chest , 2 view No observ ation record ed. [email or web address]. [facility] [address], [place], [address], 08/22/2022 07:34:30 11/03/19 22 10/31/2021 XR, chest , 2 view No observ ation record ed. [email or web address]. [facility] [address], [place], [address], 08/22/2022 07:34:30 06/27/19 23 05/03/2022 MAMMO , scree leigh, digit al, bilat eral No observ ation record ed. [id number] [facility] [address], [place], [address], 08/22/2022 07:34:30 07/04/19 23 09/08/2010 diagn ostic colon oscop y (PROC ) No observ ation record ed. [id number] Not Available 08/22/2022 07:34:30 08/10/19 23 08/10/2022 colon oscop y scree leigh (PROC ) No observ ation record ed. [email or web address] Not Available 2022 16:48:58 03/21/20 23 03/21/2023 XR, kidne y + urete r + bladd er No observ ation record ed. [email or web address] [facility] [address], [place], [address], 03/21/2023 14:00:18 08/05/19 24 08/02/2023 MAMMO , scree leigh, digit al, bilat eral No observ ation record ed. [email or web address] [facility] [address], [place], [address], 09/10/2023 11:31:06 Result Notes None recorded. Problems Name Problem SNOMED Code Status Onset Date Resolution Date Notes Provider Name and Address Organization Details Recorded Time Menopausal syndrome 104021274 Active Not Available [facility] 3 07:29:42 Abnormal urinalysis 973219180 Active 2021 Not Available [facility] 3 07:29:42 Pneumonia 037317887 Active 2021 Not Available [facility] 3 07:29:42 Mixed hyperlipidemi a 686000893 Active 2021 Not Available [facility] 3 07:29:42 Depressive disorder 98974833 Active 2017 Not Available [facility] 07:29:42 Hypothyroidis m 99367160 Active 2018 Not Available [facility] 3 07:29:42 Postviral cough 998756972 Active 2021 Not Available [facility] 3 07:29:42 Impaired glucose tolerance 7710169 Active 2021 Not Available [facility] 07:29:43 Low back pain 596204917 Active 2022 RIAN Olson [address], [place], [address] , [facility] 3 17:01:56 Acute low back pain 854518216 Active 2022 RIAN Olson [address], [place], [address] , [employer] 3 16:55:17 Cough 34530128 Active 2023 RIAN Olson [address], [place], [address] , [facility] 4 15:43:50 Problem Notes None recorded. Procedures Surgical History Date Name Laterality Status Provider Name and Address Organization Details Recorded Time 01/04/20 21 Most Recent Mammogram completed Not Available [facility] 08/22/2022 07:26:20 06/24/19 17 Date of Last Pap Smear completed Not Available [facility] 08/22/2022 07:26:20 06/24/18 95 Hysterectomy completed Not Available [facility] 08/22/2022 07:26:21 09/19/18 86 completed Not Available [facility] 08/22/2022 07:26:21 Cholecystectomy completed Not Available [facility] 08/22/2022 07:26:21 Imaging Results None recorded. Procedure Notes None recorded. Medical Equipment None Reported. Allergies Allergen ID Allergen Name Allergen Category Reaction Reaction Severity Criticality Documentation Date Start Date Code Code System Note Provider Name and Address Organization Details Recorded Time 29824 Product containin g penicilli n (product) medicatio n rash mild Not available 08/22/2022 12554 8001 SNOMED child barney Not Available [facility] 3 07:34:23 56184 clindamyc in Not available abdominal pain nausea Not available Not available Not available 08/22/2022 2582 RxNorm Not Available [facility] 3 07:34:23 Medications Name Sig Start Date Stop Date Status Note LastModified by Organization Details LastModified Time atorvastati n 20 mg tablet TAKE 1 TABLET BY MOUTH EVERY DAY IN THE EVENING active Not Available Not Available No t Available clindamycin HCl 300 mg capsule active Not Available Not Available Not Available azithromyci n 250 mg tablet TAKE 2 TABLETS (500 MG) BY ORAL ROUTE ONCE DAILY FOR 1 DAY THEN 1 TABLET (250 MG) BY ORAL ROUTE ONCE DAILY FOR 4 DAYS 10/17 completed Not Available Not Available Not Available benzonatate 200 mg capsule Take 1 capsule 3 times a day by oral route as needed. active Not Available Not Available No t Available Patanol 0.1 % eye drops active Not Available Not Available Not Available meloxicam 15 mg tablet Take 1 tablet every day by oral route as needed. 01/14 completed Not Available Not Available Not Available prednisone 20 mg tablet TAKE 1 TABLET BY MOUTH DAILY FOR 5 DAYS 06/26 completed Not Available Not Available Not Available sertraline 100 mg tablet 04/10 completed Not Available Not Available Not Available ciprofloxac in 500 mg tablet TAKE 1 TABLET BY MOUTH TWICE A DAY active Not Available Not Available No t Available tramadol 50 mg tablet active Not Available Not Available No t Available hydrocortis one acetate 25 mg rectal suppository active Not Available Not Available Not Available ketorolac 10 mg tablet TAKE 1 TABLET BY MOUTH EVERY 6 HOURS NEEDED FOR PAIN FOR 5 DAYS 10/25 completed Not Available Not Available Not Available levothyroxi ne 75 mcg tablet TAKE 1 TABLET EVERY DAY BY ORAL ROUTE IN THE MORNING. active Not Available Not Available No t Available alprazolam 0.5 mg tablet 04/10 completed Not Available Not Available Not Available methocarbam ol 750 mg tablet TAKE 1 TABLET 3 TIMES A DAY BY ORAL ROUTE NEEDED. active Not Available Not Available No t Available estradiol 1 mg tablet tablet by mouth daily 04/10 completed Not Available Not Available Not Available benzonatate 100 mg capsule TAKE 1 CAPSULE BY MOUTH TWICE A DAY NEEDED FOR COUGH active Not Available Not Available No t Available levothyroxi ne 50 mcg tablet TAKE 1 TABLET BY MOUTH EVERY DAY IN THE MORNING active Not Available Not Available No t Available omeprazole 20 mg capsule,del ayed release active Not Available Not Available Not Available levofloxaci n 500 mg tablet Take 1 tablet every 24 hours by oral route. active Not Available Not Available No t Available methylpredn isolone 4 mg tablets in a dose pack TAKE 6 TABLETS ON DAY 1 DIRECTED ON PACKAGE AND DECREASE BY 1 TAB EACH DAY FOR A TOTAL OF 6 DAYS 04/30 completed Not Available Not Available Not Available hydrocodone 10 mg-chlorphe niramine 8 mg/5 mL oral susp extend.rel 12hr Take 5 mL every 12 hours by oral route as needed. active Not Available Not Available No t Available albuterol sulfate HFA 90 mcg/actuati on aerosol inhaler INHALE 2 PUFFS 4 TIMES A DAY NEEDED FOR SHORTNESS OF BREATH OR FOR WHEEZE active Not Available Not Available No t Available sertraline 50 mg tablet TAKE 1 TABLET BY MOUTH EVERY DAY active Not Available Not Available No t Available neomycin 3.5 mg/g-polymy martita B 10,000 unit/g-dexa meth 0.1 % eye oint active Not Available Not Available Not Available rosuvastati n 5 mg tablet TAKE 1 TABLET BY MOUTH EVERY DAY active Not Available Not Available No t Available rosuvastati n 10 mg tablet Take 1 tablet every day by oral route. 03/11 completed Not Available Not Available Not Available nitrofurant oin monohydrate /macrocryst als 100 mg capsule Take 1 capsule every 12 hours by oral route. 10/17 completed Not Available Not Available Not Available sodium,pota ssium,mag sulfates 17.5 gram-3.13 gram-1.6 gram oral soln active Not Available Not Available Not Available Vitals Date Recorded Body mass index (BMI) Body height Oxygen saturation Oxygen saturation in Arterial blood by Pulse oximetry Heart rate Respiratory rate Body temperature Body weight Systolic blood pressure Diastolic blood pressure Provider Name and Address Organization Details Last Updated DateTime 3 41.5 kg/m2 162.56 cm 97 % 97 % 93 /min 16 /min 97.3 [degF] 406323. 35 g 118 mm[Hg] 78 mm[Hg] Not Available [facility] 3 07:27:52 Date Recorded Body mass index (BMI) Body height Oxygen saturation Oxygen saturation in Arterial blood by Pulse oximetry Heart rate Respiratory rate Body temperature Body weight Systolic blood pressure Diastolic blood pressure Provider Name and Address Organization Details Last Updated DateTime 2 41.6 kg/m2 162.56 cm 97 % 97 % 100 /min 16 /min 97.8 [degF] 872529. 79 g 122 mm[Hg] 80 mm[Hg] Not Available [facility] 3 07:27:51 Date Recorded Body mass index (BMI) Body height Body temperature Body weight Systolic blood pressure Diastolic blood pressure Provider Name and Address Organization Details Last Updated DateTime 1 42.6 kg/m2 162.56 cm 98.2 [degF] 191943. 91 g 126 mm[Hg] 70 mm[Hg] Not Available [facility] 3 07:27:51 Date Recorded Body mass index (BMI) Provider Name and Address Organization Details Last Updated DateTime 03/19/2023 40.9 kg/m2 RIAN Olson [address] [facility] [address], [place], [address], [employer] 03/19/2023 16:47:56 Date Recorded Body height Body weight Body temperature Heart rate Oxygen saturation Oxygen saturation in Arterial blood by Pulse oximetry Systolic blood pressure Diastolic blood pressure Provider Name and Address Organization Details Last Updated DateTime 3 162.56 cm 988693. 98 g 97.8 [degF] 84 /min 97 % 97 % 112 mm[Hg] 70 mm[Hg] Karol Sherwood RN [facility] 3 16:42:05 Date Recorded Body mass index (BMI) Body height Oxygen saturation Oxygen saturation in Arterial blood by Pulse oximetry Heart rate Body temperature Body weight Systolic blood pressure Diastolic blood pressure Provider Name and Address Organization Details Last Updated DateTime 1 40.9 kg/m2 162.56 cm 97 % 97 % 72 /min 96.7 [degF] 042507. 42 g 120 mm[Hg] 80 mm[Hg] Not Available [facility] 07:27:51 Social History Question Answer Notes LastModified by [employer] ion Details LastModified Time Tobacco Smoking Status Former Smoker Not Available [facility] 08/22/2022 07:26:03 What Is Your Level Of Caffeine Consumption? Moderate [id number] Information not available 08/22/2022 How Much Tobacco Do You Chew? None [id number] Information not available 08/22/2022 In The 14 Days Before Symptom Onset, Have You Had Close Contact With A Laboratory-confir med COVID-19 While That Case Was Ill? No [id number] Information not available 08/22/2022 In The 14 Days Before Symptom Onset, Have You Had Close Contact With A Person Who Is Under Investigation For COVID-19 While That Person Was Ill? No [id number] Information not available 08/22/2022 What Type Of Diet Are You Following? REGULAR [id number] Information not available 08/22/2022 Which Illicit Or Recreational Drugs Have You Used? None [id number] Information not available 08/22/2022 Have There Been Any Changes To Your Family Or Social Situation? No [id number] Information not available 08/22/2022 Do You Use Insect Repellent Routinely? No [id number] Information not available 08/22/2022 What Is Your Relationship Status? [id number] Information not available 08/22/2022 Do You Use Your Seat Belt Or Car Seat Routinely? Yes [id number] Information not available 08/22/2022 Do You Have Smoke And Carbon Monoxide Detectors In Your Home? Yes [id number] Information not available 08/22/2022 At What Age Did You Start Smoking Tobacco? 17 [id number] Information not available 08/22/2022 How Much Tobacco Do You Smoke? No Quit In 2014 [id number] Information not available 08/22/2022 Do You Use Sunscreen Routinely? Yes [id number] Information not available 08/22/2022 Have You Recently Traveled Abroad? No [id number] Information not available 08/22/2022 Do You Have Any Dietary Restrictions? No [id number] Information not available 08/22/2022 Sex: Unknown Functional Status Question Answer Note LastModified by Organizat ion Details LastModified Time Do you use any illicit or recreational drugs? No [id number] Information not available 08/22/2022 Do you or have you ever used any other forms of tobacco or nicotine? No [id number] Information not available 08/22/2022 What is your level of alcohol consumption? Occasional [id number] Information not available 08/22/2022 Do you or have you ever used smokeless tobacco? Never used smokeless tobacco [id number] Information not available 08/22/2022 Do you or have you ever used e-cigarettes or vape? Never used electronic cigarettes [id number] Information not available 08/22/2022 What is your exercise level? None [id number] Information not available 08/22/2022 Mental Status None recorded. Family History Relationship Description Onset Age of this Age Resolved Age Notes LastModified by Organization Details LastModified Time Father Malignant tumor of stomach [id number] Not available 08/22/2022 07:26:23 Mother Diabetes mellitus [id number] Not available 08/22/2022 07:26:23 Maternal Grandmother Malignant tumor of breast [id number] Not available 08/22/2022 07:26:23 Brother Diabetes mellitus [id number] Not available 08/22/2022 07:26:23 Medical History Condition Response EYE PROBLEMS Y ANXIETY DISORDER Y BACK / NECK PROBLEMS Y DEPRESSION (INCLUDING POST ) Y DIZZINESS Y HIGH CHOLESTEROL / HYPERLIPIDEMIA Y Gynecological History Statement/Question Response Abnormal Pap N Date of Last Mammogram 05/03/2022 Menses Monthly N Date of Last Pap Smear 06/24/2016 Current Control Method Hysterectom y Most Recent Mammogram 01/03/2021 Obstetrics History GPAL:G 2 P 0 0 0 2 Type Value Living 2 Total 2 Immunizations Vaccine Type Date Status Note Provider Nam e and Address Organization Details Recorded Time COVID-19, mRNA, LNP-S, PF, 30 mcg/0.3 mL dose 1 completed Not Available [facility] [facility] 08[facility]22 07:34:15 COVID-19, mRNA, LNP-S, PF, 100 mcg/0.5mL dose or 50 mcg/0.25mL dose 1 completed Not Available [facility] 08/22/2022 07:34:16 influenza, unspecified formulation 7 completed Not Available [facility] 08/22/2022 07:34:16 Past Encounters Encounter ID Performer Location Encounter Start Date Encounter Closed Date Diagnosis/Indication Diagnosis SNOMED-CT Code Diagnosis ICD10 Code Diagnosis Note [id number] RIAN Olson [facility] [address] [place] [address] 10/17/2020 00:00:00 10/19/2020 00:02:46 [id number] [facility]_Histor ic_[facility] _ATHENA_M IGRATION_ DEFAULT_1 _1 , 01/03/2021 00:00:00 01/03/2021 10:54:20 [id number] RIAN Olson [facility] [address] [place] [address] 04/17/2021 00:00:00 04/23/2021 22:43:09 [id number] Agapito Gamboa MD [facility] [address] [place] [address] 10/25/2021 00:00:00 11/21/2021 23:44:57 [id number] RIAN Olson [facility] [address] [place] [address] 06/26/2022 00:00:00 07/12/2022 13:59:44 [id number] RIAN Olson [facility] [address] [place] [address] 03/19/2023 16:36:30 03/19/2023 17:09:56 Mixed hyperlipidemia [id number] E78.2 pt was off her statin and not dosing daily at time of labs. she has restarted and adherent. repeat labs in jun. Hypothyroidism 58257303 E03.9 stable on levothyrox ine 75mcg daily. repeat labs in jun. Depressive disorder 3548 [id number] F32.9 stable on sertraline 50mg daily Impaired g lucose tolerance [id number] R73.03 a1c due in . Low back pain [id number] M54.50 start cipro 500mg bid course for early presentati on of UTI. add muscle relaxer for low back pain Long-term drug therapy [id number] Z79.899 Health Concerns Section Related Observation LastModified by Organization Detai ls LastModified Time None Recorded Concern Status LastModified by Organization Details LastModified Time None Recorded Advance Directives Directive None Recorded Payers Encounter Date Sequence Insurance Name Policy Number Policy Borjas Covered Member ID Bojras Member ID Guarantor Name 03/19/2023 1 [facility] [id number] Saminamaria del rosario Pater [id number] Samina Nicolas Notes Date Note Type Note Provider Name and Address Organization Details Recorded Time 021 text/h tml Anxiety/DepressionReported bypatient.Severity:denies suicidal ideations; able to maintain relationships; does not interfere with activities of daily living Context:no major life stressors Associated Symptoms:denies homicidal ideations; no significant weight gain; no significant weight loss; no visual/auditory hallucinations; no delusions; no shortness of breath; mood good; no anxiety; no crying spells; no panic; no isolation; sleeping well; appetite good; energy good; no apathy; maintaining functionalityHypothyroidismReported bypatient.Onset/Timing:better Context/Risk:normal thyroid levels; no history of head or neck radiation during childhood; no history of thyroid disease; no history of hypothyroidism; no history of hyperthyroidism; no excess iron exposure Exercisegets exercise Associated Symptoms:no cold intolerance; no heat intolerance; no weight loss; no weight gain; no double vision; no dry eyes; no hoarseness; no difficulty swallowing; no neck masses; no deepening of the voice; no fast heart rate; no increased blood pressure; no palpitations; no chest pain; no chest tightess or pressure; no constipation; no diarrhea; no vomiting; no decreased appetite; no loose stools; no irregular menstrual periods; no excessive sweating; no joint pain; no numbness; no tingling of the hands or feet; no dry skin; no tremor; no nervousness; no anxiety; no depression; no fatigue; no sleep difficulties; no skin changes; no hair changes Not Available [facility] [employer] [facility] 04/23/2021 22:43:09 022 text/h tml Anxiety/DepressionReported bypatient.Quality:symptoms improved Severity:denies suicidal ideations; able to maintain relationships;interference with sleep Duration:symptoms lasting over 2 weeks Onset/Timing:still present Context:major life stressors Modifying Factors:she doesnt take the medication like she should Associated Symptoms:denies homicidal ideations; no significant weight gain; no significant weight loss; no visual/auditory hallucinations; no delusions; no shortness of breath; mood good; no anxiety; no crying spells; no panic; no isolation; sleeping well; appetite good; energy good; no apathy; maintaining functionalityCoughReported bypatient.Quality:loose; non productive;productive;harsh Severity:improving Duration:intermittent; subacute (3-8 weeks) Onset/Timing:gradual Context:smoker; worse at night; history of bronchitis; CXR confirmed pneumonia Modifying Factors:abx Associated Symptoms:no fever; no chills; no chest pain; no heartburn; no vomiting; no edema; no agitation; no wheezing; no sputum production; no chest wall tenderness; no throat clearing; no dyspnea at rest or exertion; no nasal discharge;nausea;post nasal drip;shortness of breath(w/exertion)Notes:She is due for the repeat CXR on Saturday. Needs order.HyperlipidemiaReported bypatient.Duration:chronic Control:usually well controlled Current Therapy:currently taking: (rosuvastatin 10mg) Compliance:compliant;noncompliant with diet;does not exercise Complications:no coronary artery disease; no peripheral artery disease; no cardiovascular disease Risk Factors:smokingHypothyroidismReported bypatient.Quality:not changing Duration:constant Onset/Timing:still present Context/Risk:normal thyroid levels; no history of head or neck radiation during childhood; no history of thyroid disease; no history of hyperthyroidism; no excess iron exposure;history of hypothyroidism;female gender Modifying Factors:medication Exerciseno exercise Associated Symptoms:no cold intolerance; no heat intolerance; no weight loss; no weight gain; no double vision; no dry eyes; no hoarseness; no difficulty swallowing; no neck masses; no deepening of the voice; no fast heart rate; no increased blood pressure; no palpitations; no chest pain; no chest tightess or pressure; no constipation; no diarrhea; no vomiting; no decreased appetite; no loose stools; no irregular menstrual periods; no excessive sweating; no joint pain; no numbness; no tingling of the hands or feet; no dry skin; no tremor; no nervousness; no anxiety; no depression; no fatigue; no sleep difficulties; no skin changes;hair changes Not Available [facility] 11/21/2021 23:44:57 023 text/h tml Anxiety/DepressionReported bypatient.Quality:doesnt matter time of day. Severity:denies suicidal ideations; able to maintain relationships;interference with sleep Duration:symptoms lasting over 2 weeks Onset/Timing:still present Context:no major life stressors Modifying Factors:medications as directed; doesnt take it regularly Associated Symptoms:denies homicidal ideations; no significant weight gain; no significant weight loss; no visual/auditory hallucinations; no delusions; no shortness of breath; mood good; no anxiety; no crying spells; no panic; no isolation; sleeping well; appetite good; energy good; no apathy; maintaining functionality HyperlipidemiaReported bypatient.Duration:chronic Control:usually well controlled Current Therapy:currently taking: (rosuvastatin 10mg); but doesnt take it regularly. Compliance:compliant;noncompliant with diet;does not exercise Complications:no coronary artery disease; no peripheral artery disease; no cardiovascular diseaseHypothyroidismReported bypatient.Quality:not changing Duration:constant Onset/Timing:still present Context/Risk:normal thyroid levels; no history of head or neck radiation during childhood; no history of thyroid disease; no history of hyperthyroidism; no excess iron exposure;history of hypothyroidism;female gender Modifying Factors:medication; but doesnt take it regularly Exerciseno exercise Associated Symptoms:no cold intolerance; no heat intolerance; no weight loss; no weight gain; no double vision; no dry eyes; no hoarseness; no difficulty swallowing; no neck masses; no deepening of the voice; no fast heart rate; no increased blood pressure; no palpitations; no chest pain; no chest tightess or pressure; no constipation; no diarrhea; no vomiting; no decreased appetite; no loose stools; no irregular menstrual periods; no excessive sweating; no joint pain; no numbness; no tingling of the hands or feet; no dry skin; no tremor; no nervousness; no anxiety; no depression; no fatigue; no sleep difficulties; no skin changes; no hair changes Not Available [employer] [facility] No [employer] [facility] 07/12/2022 13:59:44 023 text/h tml Anxiety/DepressionReported bypatient.Severity:denies suicidal ideations; able to maintain relationships; does not interfere with activities of daily living Context:no major life stressors Associated Symptoms:denies homicidal ideations; no significant weight gain; no significant weight loss; no visual/auditory hallucinations; no delusions; no shortness of breathHyperlipidemiaReported bypatient.Duration:chronic Control:usually well controlled; improving; at goal Compliance:compliant;noncompliant with diet;does not exercise Complications:no coronary artery disease; no peripheral artery disease; no cardiovascular diseaseHypothyroidismReported bypatient.Onset/Timing:better Context/Risk:normal thyroid levels; no history of head or neck radiation during childhood; no history of thyroid disease; no history of hypothyroidism; no history of hyperthyroidism; no excess iron exposure;history of hypothyroidism;female gender Exercisegets exercise Associated Symptoms:no cold intolerance; no heat intolerance; no weight loss; no weight gain; no double vision; no dry eyes; no hoarseness; no difficulty swallowing; no neck masses; no deepening of the voice; no fast heart rate; no increased blood pressure; no palpitations; no chest pain; no chest tightess or pressure; no constipation; no diarrhea; no vomiting; no decreased appetite; no loose stools; no irregular menstrual periods; no excessive sweating; no joint pain; no numbness; no tingling of the hands or feet; no dry skin; no tremor; no nervousness; no anxiety; no depression; no fatigue; no sleep difficulties; no skin changes; no hair changes 6 mo f/u RIAN Olson [address] [facility], [address], [address], [facility] [employer] [facility] [employer] [facility] 03/19/2023 23:26:06 OBGyn Episode No OBEpisode recorded.
--- NOTE | 2024-11-24 13:15 | NEURO_ITS ---
Impression: # Diabetic complains of numbness of hands. ? # Left ulnar neuropathy around the elbow. ? # No Carpal Tunnel Syndrome. ? # Normal Needle/EMG exam. Nerve Conduction Studies Anti Sensory Summary Table ?Stim Site NR Peak (ms) P-T Amp (?V) Site1 Site2 Delta-P (ms) Dist (cm) Aries (m/s) Left Median Anti Sensory (2-3nd Digit) Wrist ? 2.8 9.9 Wrist 2-3nd Digit 2.8 14.0 50 Wrist ? 2.8 89.3 Wrist 2-3nd Digit 2.8 14.0 50 Right Median Anti Sensory (2-3nd Digit) Wrist ? 2.8 65.6 Wrist 2-3nd Digit 2.8 14.0 50 Wrist ? 2.8 67.0 Wrist 2-3nd Digit 2.8 14.0 50 Left Radial Anti Sensory (Base 1st Digit) Wrist ? 3.2 8.5 Wrist Base 1st Digit 3.2 0.0 Right Radial Anti Sensory (Base 1st Digit) Wrist ? 2.1 18.7 Wrist Base 1st Digit 2.1 0.0 Left Ulnar Anti Sensory (5th Digit) Wrist ? 2.7 34.7 Wrist 5th Digit 2.7 14.0 52 Right Ulnar Anti Sensory (5th Digit) Wrist ? 2.3 61.9 Wrist 5th Digit 2.3 14.0 61 Motor Summary Table ?Stim Site NR Onset (ms) O-P Amp (mV) Site1 Site2 Delta-0 (ms) Dist (cm) Aries (m/s) Left Median Motor (Abd Poll Brev) Wrist ? 2.7 2.6 Elbow Wrist 4.6 28.0 61 Elbow ? 7.3 2.4 Right Median Motor (Abd Poll Brev) Wrist ? 3.0 2.3 Elbow Wrist 5.4 29.0 54 Elbow ? 8.4 1.5 Left Ulnar Motor (Abd Dig Minimi) Wrist ? 2.3 5.5 A Elbow Wrist 6.2 28.0 45 A Elbow ? 8.5 4.5 B Elbow Wrist 4.2 21.0 50 B Elbow ? 6.5 5.3 Right Ulnar Motor (Abd Dig Minimi) Wrist ? 2.0 7.7 A Elbow Wrist 5.7 29.0 51 A Elbow ? 7.7 5.1 B Elbow Wrist 3.9 21.0 54 B Elbow ? 5.9 6.9 F Wave Studies ?NR F-Lat (ms) L-R F-Lat (ms) Left Median (Mrkrs) (Abd Poll Brev) ? 27.57 0.19 Right Median (Mrkrs) (Abd Poll Brev) ? 27.76 0.19 Left Ulnar (Mrkrs) (Abd Dig Min) ? 31.12 2.15 Right Ulnar (Mrkrs) (Abd Dig Min) ? 28.97 2.15 EMG ?Side Muscle Nerve Root Ins Act Fibs Amp Dur Recrt Comment Right 1stDorInt Ulnar C8-T1 Nml Nml Nml Nml Nml Right Ext Indicis Radial (Post Int) C7-8 Nml Nml Nml Nml Nml Right Ext Digitorum Radial (Post Int) C7-8 Nml Nml Nml Nml Nml Right BrachioRad Radial C5-6 Nml Nml Nml Nml Nml Right PronatorTeres Median C6-7 Nml Nml Nml Nml Nml Right Abd Poll Brev Median C8-T1 Nml Nml Nml Nml Nml Right ABD Dig Min Ulnar C8-T1 Nml Nml Nml Nml Nml Right FlexPolLong Median (Ant Int) C7-8 Nml Nml Nml Nml Nml Right Abd Poll Long Radial (Post Int) C7-8 Nml Nml Nml Nml Nml Left 1stDorInt Ulnar C8-T1 Nml Nml Nml Nml Nml Left Ext Indicis Radial (Post Int) C7-8 Nml Nml Nml Nml Nml Left Ext Digitorum Radial (Post Int) C7-8 Nml Nml Nml Nml Nml Left BrachioRad Radial C5-6 Nml Nml Nml Nml Nml Left PronatorTeres Median C6-7 Nml Nml Nml Nml Nml Left Abd Poll Brev Median C8-T1 Nml Nml Nml Nml Nml Left ABD Dig Min Ulnar C8-T1 Nml Nml Nml Nml Nml Left FlexPolLong Median (Ant Int) C7-8 Nml Nml Nml Nml Nml Left Abd Poll Long Radial (Post Int) C7-8 Nml Nml Nml Nml Nml
== END 2024-11-24 12:32 | disposition home or self-care (01) ==
PROVIDERS: PCP Physician Assistant; Visit Provider Physician Assistant
DX: G56.22 Lesion of ulnar nerve, left upper limb (principal)
CPT/HCPCS: 95886; 95911

== ENCOUNTER 2025-01-12 13:54 | Outpatient (CLI) | payer OTHER, SELFPAY ==
--- NOTE | ~2025-01-12 | MM_ITS ---
EXAMINATION: MM screening nayeli BI w kasia HISTORY: Screening TECHNIQUE: Craniocaudal and mediolateral oblique 3-D tomosynthesis images were obtained and synthetic 2-D images were generated. CAD analysis was submitted and interpreted. COMPARISON: Comparison to multiple prior studies sequentially, with oldest reviewed study dated 04/25. BREAST PARENCHYMAL COMPOSITION: There are scattered areas of fibroglandular density. FINDINGS: There is no evidence of suspicious mass, calcification, or architectural distortion to sug gest malignancy in either breast. IMPRESSION: 1. No mammographic evidence of malignancy. 2. Recommend routine screening mammography in one year. BI-RADS Category 1: Negative Reviewed, dictated and finalized at location B.
== END 2025-01-12 13:55 | disposition home or self-care (01) ==
LOC: MICIMG 13:56
PROVIDERS: PCP Physician Assistant; Visit Provider Physician Assistant
DX: Z12.31 Encounter for screening mammogram for malignant neoplasm of breast (principal)
CPT/HCPCS: 77063; 77067